=== PATIENT | female | born 1955 | race Caucasian/White ===

== ENCOUNTER 2023-08-04 23:48 | Inpatient (IN) | payer MEDICARE ==
[2023-08-05] MEDS: PANTOPRAZOLE 40 MG/10 ML VIAL IVP STA (00:29)
--- NOTE | 2023-08-05 00:43 | XR ---
EXAM: XR Chest, 1 View CLINICAL HISTORY: ITS.REASON XR Reason: abdominal pain TECHNIQUE: Frontal view of the chest. COMPARISON: No relevant prior studies available. FINDINGS: Lungs: Bibasilar atelectasis. Heterogeneous interstitial prominence in the right lung. Pleural space: Small right pleural effusion. Heart: Unremarkable. No cardiomegaly. Upper abdomen: Elevated right hemidiaphragm. IMPRESSION: 1. Elevated right hemidiaphragm. 2. Bibasilar atelectasis. 3. Small right pleural effusion. 4. Heterogeneous interstitial prominence in the right lung.
[2023-08-05 00:47] LABS: Anisocytosis Slight; Basophils # (A) 0.1 k/uL (0-0.2); Basophils % (A) 1 %; Eosinophils # (A) 0.6 k/uL (0-0.7); Eosinophils % (A) 4 %; HCT 21.3 % (34.0-46.0); Hypochromasia Marked; Lymphocytes # (A) 2.4 k/uL (1.0-4.8); Lymphocytes % (A) 19 %; MCH 17.2 pg (25.0-35.0); MCHC 27.7 g/dL (31.0-37.0); MCV 62.1 fL (80.0-100.0); Mean Platelet Volume 7.8; Microcytosis Marked; Monocytes % (A) 7 %; Neutrophils # (A) 8.7 k/uL (1.3-7.7); Neutrophils % (A) 67 %; Platelet Count 596 k/uL (150-450); Poikilocytosis Moderate; RBC 3.44 m/uL (3.80-5.40); RDW 19.5 % (11.5-15.5)
[2023-08-05 00:51] LABS: INR 1.2 (<1.2); Partial Thromboplastin Time 25.6 sec (22.0-30.0); Prothrombin Time 12.8 sec (10.0-12.5)
--- NOTE | 2023-08-05 00:54 | ED ---
General Adult HPI - General Chief complaint: Recheck/Abnormal Lab/Rx Stated complaint: Critical Labs Time Seen by Provider: 08/04/23 23:53 Source: patient, EMS, RN notes reviewed, old records reviewed Mode of arrival: EMS - History of Present Illness Initial comments: Patient is a 68-year-old female presents emergency department with no obvious complaints. Presents emergency department after being sent from her nursing facility for low hemoglobin on outpatient lab draw. Was recently sent to this facility. Apparently is on Eliquis. Patient denies any nausea, vomiting, he matochezia, melena, dark tarry stools. Denies any abdominal pain, chest pain, shortness of breath. Has no other acute complaints at this time. Has some lower extremity wounds that are slow healing. No other acute complaints. Is at baseline mental status of AandO x 2-3. Presents for further evaluation at this time. - Related Data Allergies Allergy/AdvReac Type Severity Reaction Status Date / Time No Known Allergies Allergy Verified 08/05/23 00:24 Review of Systems ROS Statement: Those systems with pertinent positive or pertinent negative responses have been documented in the HPI. Review of Systems: CONST: Denies fever EYES: Denies blurry vision ENT: Denies nasal congestion C/V: Denies Chest pain RESP: Denies shortness of breath GI: Denies abdominal pain : Denies dysuria SKIN: Denies rash. MSK: Denies joint pain. NEURO: Denies headache ROS Other: All systems not noted in ROS Statement are negative. Past Medical History Past Medical History: Unable to Obtain History of Any Multi-Drug Resistant Organisms: None Reported Past Surgical History: Back Surgery Past Psychological History: Unable to Obtain Smoking Status: Former smoker Past Alcohol Use History: None Reported Past Drug Use History: None Reported General Exam - General Exam Comments Initial Comments: General: Appears in no acute distress. HEAD: Normal with no signs of head trauma. EYES: PERRLA, EOMI, conjunctiva normal, no discharge. ENT: Hearing grossly intact, normal oropharynx. RESPIRATORY: Clear breath sounds bilaterally. No wheezes, rales, or rhonchi. C/V: Regular rate and rhythm. S1 and S2 auscultated, mild bilateral lower extremity pitting edema, peripheral pulses 2+ and intact throughout ABD: Abd is soft, nontender, nondistended EXT: Normal range of motion, no obvious deformity SKIN: No rashes or lesions observed on exposed skin. NEURO: Alert and oriented x 2-3 which is baseline. No obvious focal acute deficits. Course Vital Signs 08/05/23 08/05/23 08/05/23 00:13 02:05 02:42 Temperature 98.3 F 97.6 F Pulse Rate 79 81 79 Respiratory 18 18 24 Rate Blood Pressure 107/95 115/68 109/58 O2 Sat by Pulse 93 L 93 L 92 L Oximetry 08/05/23 08/05/23 08/05/23 02:52 03:12 05:11 Temperature 97.7 F 97.6 F 98.6 F Pulse Rate 80 85 74 Respiratory 18 18 13 Rate Blood Pressure 110/64 117/60 104/51 O2 Sat by Pulse 92 L 94 L 95 Oximetry 08/05/23 06:32 Temperature Pulse Rate 75 Respiratory 17 Rate Blood Pressure 110/71 O2 Sat by Pulse 94 L Oximetry Medical Decision Making - Medical Decision Making Was pt. sent in by a medical professional or institution (, PA, [employer], urgent care, hospital, or long-term...) When possible be specific @ -No Did you speak to anyone other than the patient for history (EMS, parent, family, police, friend...)? What history was obtained from this source @ -No Did you review nursing and triage notes (agree or disagree)? Why? @ -I reviewed and agree with nursing and triage notes Were old charts reviewed (outside hosp., previous admission, EMS record, old EKG, old radiological studies, urgent care reports/EKG's, long-term records)? Report findings @ -No old charts were reviewed Differential Diagnosis (chest pain, altered mental status, abdominal pain women, abdominal pain men, vaginal bleeding, weakness, fever, dyspnea, syncope, headache, dizziness, GI bleed, back pain, seizure, CVA, palpatations, mental health, musculoskeletal)? @ -Lab draw, anemia, GI bleed, dehydration, electrolyte abnormality. This list is not all inclusive. EKG interpreted by me (3pts min.). @ -As above X-rays interpreted by me (1pt min.). @ -Chest x-ray reveals no obvious acute cardiopulmonary process. CT interpreted by me (1pt min.). @ -None done U/S interpreted by me (1pt. min.). @ -None done What testing was considered but not performed or refused? (CT, X-rays, U/S, labs)? Why? @ -None What meds were considered but not given or refused? Why? @ -None Did you discuss the management of the patient with other professionals (professionals i.e. , PA, [employer], lab, RT, psych nurse, social science manager, apprentice embalmer, teacher, chief supply chain officer, comp field case manager)? Give summary @ -I spoke with the admitting team, city call SOPHIA Lopez of [facility] who accepted the admission Was smoking cessation discussed for >3mins.? @ -No Was critical care preformed (if so, how long)? @ -No Were there social determinants of health that impacted care today? How? (Homelessness, low income, unemployed, alcoholism, drug addiction, transportation, low edu. Level, literacy, decrease access to med. care, longterm, rehab)? @ -No Was there de-escalation of care discussed even if they declined (Discuss DNR or withdrawal of care, Hospice)? DNR status @ -No What co-morbidities impacted this encounter? (DM, HTN, Smoking, COPD, CAD, Cancer, CVA, ARF, Chemo, Hep., AIDS, mental health diagnosis, sleep apnea, morbid obesity)? @ -None Was patient admitted / discharged? Hospital course, mention meds given and route, prescriptions, significant lab abnormalities, going to OR and other pertinent info. @ -Patient presents for lab redraw over concern for anemia. We will repeat labs. She has no obvious complaints at this time. No evidence of GI bleeding on questioning or on exam. Hemodynamically stable. Vital signs within acceptable limits. Patient was in agreement with this plan. It does appear based on long-term paperwork that she is on Eliquis. EKG shows no signs of acute ischemia. Chest x-ray shows no obvious acute cardiopulmonary process. Patient does have a right-sided pleural effusion. Patient's laboratory studies remarkable for a microcytic anemia with a hemoglobin of 5.9. No prior labs for comparison. Rectal exam performed in the presence of a female staff member. No gross blood on exam. No hemorrhoids. Occult blood negative. At this time, patient has a microcytic anemia of unknown duration. Does not appear to be having an acute GI bleed at this time as patient's rectal exam is unremarkable and she has not been experiencing any hematemesis. Patient has no complaints at this time. Patient will be transfused 1 unit of pRBCs and we will admit the patient for monitoring. She was in agreement this plan. Vital signs remain within acceptable limits.Will continue to hold the patient's anticoagulation at this time. I have low suspicion for acute GI bleed as a source of her current anemia. Appears to be chronic in nature with the microcytic aspect. I spoke with [facility] city call SOPHIA Lopez who accepted the admission. Undiagnosed new problem with uncertain prognosis? @ -No Drug Therapy requiring intensive monitoring for toxicity (Heparin, Nitro, Insulin, Cardizem)? @ -No Were any procedures done? @ -No Diagnosis/symptom? @ -Microcytic anemia Acute, or Chronic, or Acute on Chronic? @ -Acute Uncomplicated (without systemic symptoms) or Complicated (systemic symptoms)? @ -complicated Side effects of treatment? @ -None Exacerbation, Progression, or Severe Exacerbation] @ -No Poses a threat to life or bodily function? @ -Possibly, yes - Lab Data Result diagrams: 08/05/23 00:02 08/05/23 00:02 Lab Results 08/05/23 08/05/23 08/05/23 Range/Units 00:02 00:02 00:02 WBC 13.0 H (3.8-10.6) k/uL RBC 3.44 L (3.80-5.40) m/uL Hgb 5.9 L* (11.4-16.0) gm/dL Hct 21.3 L (34.0-46.0) % MCV 62.1 L (80.0-100.0) fL MCH 17.2 L (25.0-35.0) pg MCHC 27.7 L (31.0-37.0) g/dL RDW 19.5 H (11.5-15.5) % Plt Count 596 H (150-450) k/uL MPV 7.8 Neutrophils % 67 % Lymphocytes % 19 % Monocytes % 7 % Eosinophils % 4 % Basophils % 1 % Neutrophils # 8.7 H (1.3-7.7) k/uL Lymphocytes # 2.4 (1.0-4.8) k/uL Monocytes # 1.0 (0-1.0) k/uL Eosinophils # 0.6 (0-0.7) k/uL Basophils # 0.1 (0-0.2) k/uL Hypochromasia Marked Poikilocytosis Moderate Anisocytosis Slight Microcytosis Marked PT 12.8 H (10.0-12.5) sec INR 1.2 H (<1.2) APTT 25.6 (22.0-30.0) sec Sodium 135 L (137-145) mmol/L Potassium 4.8 (3.5-5.1) mmol/L Chloride 108 H (98-107) mmol/L Carbon Dioxide 24 (22-30) mmol/L Anion Gap 3 mmol/L BUN 12 (7-17) mg/dL Creatinine 0.33 L (0.52-1.04) mg/dL Est GFR (CKD-EPI)AfAm >90 (>60 ml/min/1.73 sqM) Est GFR (CKD-EPI)NonAf >90 (>60 ml/min/1.73 sqM) Glucose 99 (74-99) mg/dL Plasma Lactic Acid Saurabh (0.7-2.0) mmol/L Calcium 8.1 L (8.4-10.2) mg/dL Total Bilirubin 0.7 (0.2-1.3) mg/dL AST 123 H (14-36) U/L ALT 41 H (4-34) U/L Alkaline Phosphatase 131 H (38-126) U/L Total Protein 6.9 (6.3-8.2) g/dL Albumin 2.8 L (3.5-5.0) g/dL Amylase 43 (30-110) U/L Lipase 83 (23-300) U/L Stool Occult Blood (Negative) Blood Type Blood Type Confirm Blood Type Recheck Bld Type Recheck Status Antibody Screen Crossmatch Spec Expiration Date 08/05/23 08/05/23 08/05/23 Range/Units 00:02 00:02 00:07 WBC (3.8-10.6) k/uL RBC (3.80-5.40) m/uL Hgb (11.4-16.0) gm/dL Hct (34.0-46.0) % MCV (80.0-100.0) fL MCH (25.0-35.0) pg MCHC (31.0-37.0) g/dL RDW (11.5-15.5) % Plt Count (150-450) k/uL MPV Neutrophils % % Lymphocytes % % Monocytes % % Eosinophils % % Basophils % % Neutrophils # (1.3-7.7) k/uL Lymphocytes # (1.0-4.8) k/uL Monocytes # (0-1.0) k/uL Eosinophils # (0-0.7) k/uL Basophils # (0-0.2) k/uL Hypochromasia Poikilocytosis Anisocytosis Microcytosis PT (10.0-12.5) sec INR (<1.2) APTT (22.0-30.0) sec Sodium (137-145) mmol/L Potassium (3.5-5.1) mmol/L Chloride (98-107) mmol/L Carbon Dioxide (22-30) mmol/L Anion Gap mmol/L BUN (7-17) mg/dL Creatinine (0.52-1.04) mg/dL Est GFR (CKD-EPI)AfAm (>60 ml/min/1.73 sqM) Est GFR (CKD-EPI)NonAf (>60 ml/min/1.73 sqM) Glucose (74-99) mg/dL Plasma Lactic Acid Saurabh 1.1 (0.7-2.0) mmol/L Calcium (8.4-10.2) mg/dL Total Bilirubin (0.2-1.3) mg/dL AST (14-36) U/L ALT (4-34) U/L Alkaline Phosphatase (38-126) U/L Total Protein (6.3-8.2) g/dL Albumin (3.5-5.0) g/dL Amylase (30-110) U/L Lipase (23-300) U/L Stool Occult Blood (Negative) Blood Type O Positive Blood Type Confirm O Positive Blood Type Recheck No Previous Record Bld Type Recheck Status CABO Indicated Antibody Screen NEGATIVE Crossmatch See Detail Spec Expiration Date 08/08/2023 - 230108/05/23 Range/Units 01:50 WBC (3.8-10.6) k/uL RBC (3.80-5.40) m/uL Hgb (11.4-16.0) gm/dL Hct (34.0-46.0) % MCV (80.0-100.0) fL MCH (25.0-35.0) pg MCHC (31.0-37.0) g/dL RDW (11.5-15.5) % Plt Count (150-450) k/uL MPV Neutrophils % % Lymphocytes % % Monocytes % % Eosinophils % % Basophils % % Neutrophils # (1.3-7.7) k/uL Lymphocytes # (1.0-4.8) k/uL Monocytes # (0-1.0) k/uL Eosinophils # (0-0.7) k/uL Basophils # (0-0.2) k/uL Hypochromasia Poikilocytosis Anisocytosis Microcytosis PT (10.0-12.5) sec INR (<1.2) APTT (22.0-30.0) sec Sodium (137-145) mmol/L Potassium (3.5-5.1) mmol/L Chloride (98-107) mmol/L Carbon Dioxide (22-30) mmol/L Anion Gap mmol/L BUN (7-17) mg/dL Creatinine (0.52-1.04) mg/dL Est GFR (CKD-EPI)AfAm (>60 ml/min/1.73 sqM) Est GFR (CKD-EPI)NonAf (>60 ml/min/1.73 sqM) Glucose (74-99) mg/dL Plasma Lactic Acid Saurabh (0.7-2.0) mmol/L Calcium (8.4-10.2) mg/dL Total Bilirubin (0.2-1.3) mg/dL AST (14-36) U/L ALT (4-34) U/L Alkaline Phosphatase (38-126) U/L Total Protein (6.3-8.2) g/dL Albumin (3.5-5.0) g/dL Amylase (30-110) U/L Lipase (23-300) U/L Stool Occult Blood Negative (Negative) Blood Type Blood Type Confirm Blood Type Recheck Bld Type Recheck Status Antibody Screen Crossmatch Spec Expiration Date - EKG Data -: EKG Interpreted by Me EKG Comments: 12-lead Electrocardiogram Interpretation Note EKG was reviewed and interpreted by myself. 12-lead ECG performed at 0034 is interpreted by me as revealing normal sinus rhythm at a rate of 80 beats per minute. [place] is normal. ND interval is 159 ms, QRS duration is 83 ms, QTc is 443 ms.. There were no ST or T wave abnormalities to suggest myocardial ischemia or injury. R wave progression across the precordium was satisfactory. By my interpretation this EKG is non-diagnostic for acute ischemia. Disposition Clinical Impression: Microcytic anemia Disposition: ADMITTED IP TO THIS HOSP Condition: Stable Time of Disposition: 02:10
[2023-08-05 00:57] LABS: HGB 5.9 gm/dL (11.4-16.0)
[2023-08-05 01:01] LABS: ALT 41 U/L (4-34); African American GFR (CKD) >90 (>60 ml/min/1.73 sqM); Amylase 43 U/L (30-110); Anion Gap 3 mmol/L; Blood Urea Nitrogen 12 mg/dL (7-17); Calcium 8.1 mg/dL (8.4-10.2); Carbon Dioxide 24 mmol/L (22-30); Chloride 108 mmol/L (98-107); Glucose 99 mg/dL (74-99); Lipase 83 U/L (23-300); Non-African American GFR(CKD) >90 (>60 ml/min/1.73 sqM); Sodium 135 mmol/L (137-145); Total Bilirubin 0.7 mg/dL (0.2-1.3)
[2023-08-05 01:13] LABS: AST 123 U/L (14-36); Albumin 2.8 g/dL (3.5-5.0); Alkaline Phosphatase 131 U/L (38-126); Potassium 4.8 mmol/L (3.5-5.1); Total Protein 6.9 g/dL (6.3-8.2)
[2023-08-05] MEDS ORDERED: ONDANSETRON 4 MG/2 ML VIAL IVP PRN (02:08)
[2023-08-05] MEDS ORDERED: NALOXONE 0.4 MG/ML 1 ML VIAL IV PRN (02:08)
[2023-08-05] MEDS ORDERED: ACETAMINOPHEN TAB 325 MG TAB PO PRN (02:08)
[2023-08-05] MEDS: oxyCODONE-APAP 5-325MG 1 EACH TAB PO PRN (03:29)
[2023-08-05 08:29] LABS: % Iron Saturation 3.41 (12.00-45.00)
[2023-08-05] MEDS ORDERED: PANTOPRAZOLE 40 MG/10 ML VIAL IV SCH (09:00)
[2023-08-05] MEDS: PANTOPRAZOLE 40 MG/10 ML VIAL IV SCH (09:10)
[2023-08-05] MEDS ORDERED: ACETAMINOPHEN TAB 500 MG TAB PO PRN (09:41)
[2023-08-05] MEDS: SODIUM FERRIC GLUCONAT-SUCROSE 125 MG in SODIUM CHLORIDE 0.9% 100 ML IVPB SCH (10:15)
[2023-08-05] MEDS: PEG 3350 (236 GM/BTL) + LYTES 4,000 ML BOTTLE PO ONE ×2 (12:37→16:28)
[2023-08-05] MEDS: PREGABALIN 75 MG CAP PO SCH (12:47)
--- NOTE | 2023-08-05 13:01 | P.HPIM ---
History of Present Illness H&P Date: 08/05/23 History of present illness; patient IS A 68-year-old lady with past medical history significant for coronary artery disease, PE, dementia who presented to the ER for abnormal labs. Patient is currently residing in a custodial facility and was found to have low hemoglobin levels. Patient denies any chest pain or shortness of breath. There is complain of lethargy and weakness. There was no complaint nausea, vomiting abdominal pain. There was no complaint of blood in the stools. Denies any hematemesis. Patient has been taking aspirin, Plavix and Eliquis in outpatient settings. Because of these abnormal labs, patient sent to the ER Initial lab work done in the ER showed WBC 13, hemoglobin 5.9, platelet count 596, sodium 135, potassium 4.8, BUN 12, creatinine 0.33, AST 123, ALT 41, alk phos 131 EKG done in the ER showed heart rate of80 , no ST segment elevation or depression seen, no T-wave inversions seen. Chest x-ray done in the ER elevated right hemidiaphragm, bilateral atelectasis, small right pleural effusion Patient admitted to internal medicine service REVIEW OF SYSTEMS: CONSTITUTIONAL: No fever, no malaise, no fatigue. HEENT: No recent visual problems or hearing problems. Denied any sore throat. CARDIOVASCULAR: No chest pain, orthopnea, PND, no palpitations, no syncope. PULMONARY: No shortness of breath, no cough, no hemoptysis. GASTROINTESTINAL: No diarrhea, no nausea, no vomiting, no abdominal pain. NEUROLOGICAL: No headaches, no weakness, no numbness. HEMATOLOGICAL: Denies any bleeding or petechiae. GENITOURINARY: Denies any burning micturition, frequency, or urgency. MUSCULOSKELETAL/RHEUMATOLOGICAL: Denies any joint pain, swelling, or any muscle pain. ENDOCRINE: Denies any polyuria or polydipsia. The rest of the 14-point review of systems is negative. PHYSICAL EXAMINATION: GENERAL: The patient is alert to self, not in any acute distress. Well developed, well nourished. HEENT: Pupils are round and equally reacting to light. EOMI. No scleral icterus. No conjunctival pallor. Normocephalic, atraumatic. No pharyngeal erythema. No thyromegaly. CARDIOVASCULAR: S1 and S2 present. No murmurs, rubs, or gallops. PULMONARY: Chest is clear to auscultation, no wheezing or crackles. ABDOMEN: Soft, nontender, nondistended, normoactive bowel sounds. No palpable organomegaly. MUSCULOSKELETAL: Bilateral lower extremity bandages EXTREMITIES: No cyanosis, clubbing, or pedal edema. NEUROLOGICAL: Gross neurological examination did not reveal any focal deficits. SKIN: No rashes. Assessment and plan Acute blood loss anemia Iron deficiency anemia Hypertension Hyperlipidemia Coronary artery disease History of PE Monitor vital signs Monitor CBC Monitor CMP Continue telemetry monitoring Ordered anemia workup Start Venofer Continue IV Protonix Hold aspirin, Plavix and Eliquis for now Resume home meds Hold blood pressure medications for now. Consult GI for evaluation Consult hematology for iron deficiency anemia Consult cardiology Labs and medication were reviewed.. Continue same treatment. Continue with symptomatic treatment. Resume home medication. Monitor labs and vitals. DVT and GI prophylaxis. Further recommendations as per clinical course of the patient Dictation was produced using [employer] dictation software. please excuse any grammatical, word or spelling errors. Past Medical History Past Medical History: Unable to Obtain History of Any Multi-Drug Resistant Organisms: None Reported Past Surgical History: Back Surgery Past Psychological History: Unable to Obtain Smoking Status: Former smoker Past Alcohol Use History: None Reported Past Drug Use History: None Reported Medications and Allergies Home Medications Medication Instructions Recorded Confirmed Type Acetaminophen [Tylenol Extra 500 mg PO Q6H PRN 08/05/23 08/05/23 History Strength] Alendronate Sodium [Fosamax] 70 mg PO CLEMENT@59908/05/23 08/05/23 History Apixaban [Eliquis] 5 mg PO BID 08/05/23 08/05/23 History Ascorbic Acid [Vitamin C] 500 mg PO DAILY@69908/05/23 08/05/23 History Aspirin 81 mg PO DAILY@59908/05/23 08/05/23 History Atorvastatin [Lipitor] 40 mg PO HS@199908/05/23 08/05/23 History Calcium Carbonate/Vitamin D3 1 tab PO DAILY@59908/05/23 08/05/23 History [Calcium 600-Vit D3 5 Mcg (200 Iu)] Clopidogrel [Plavix] 75 mg PO HS@199908/05/23 08/05/23 History Docusate Sodium [Dok] 200 mg PO DAILY@0600 08/05/23 08/05/23 History Ergocalciferol (Vitamin D2) 1,250 mcg PO WE@59908/05/23 08/05/23 History [Drisdol (50,000 Iu)] FLUoxetine HCL [PROzac] 20 mg PO DAILY@0608/05/23 08/05/23 History Famotidine [Pepcid] 20 mg PO DAILY@0608/05/23 08/05/23 History Fluticasone Propion/Salmeterol 1 puff INHALATION RT-BID@0700,1900 08/05/23 08/05/23 History [Advair 500-50 Diskus] Furosemide [Lasix] 20 mg PO DAILY@69908/05/23 08/05/23 History Lactulose 20 gm PO DAILY PRN 08/05/23 08/05/23 History Lidocaine/Menthol [Icy Hot 4%-1% 1 patch TOPICAL DAILY@69908/05/23 08/05/23 History Patch] Mag Hydrox/Aluminum Hyd/Simeth 10 ml PO Q4H PRN 08/05/23 08/05/23 History [Mylanta Maximum Strength Liq] Magnesium Hydroxide [Milk of 2,400 mg PO Q3D PRN 08/05/23 08/05/23 History Magnesia] Melatonin 3 mg PO HS 08/05/23 08/05/23 History Menthol [Biofreeze] 1 applic TOPICAL QID@07,13,19,22 08/05/23 08/05/23 History Metoprolol Succinate (ER) [Toprol 25 mg PO DAILY@69908/05/23 08/05/23 History Xl] Montelukast [Singulair] 10 mg PO HS@199908/05/23 08/05/23 History Multivitamins, Thera [Multivitamin 1 tab PO DAILY@0600 08/05/23 08/05/23 History (formulary)] Mupirocin 2% Oint [Bactroban 2% 1 applic TOPICAL TID PRN 08/05/23 08/05/23 History Oint] Pregabalin [Lyrica] 150 mg PO TID@0700,1300,1900 08/05/23 08/05/23 History Sennosides [Senokot] 17.2 mg PO HS@199908/05/23 08/05/23 History oxyCODONE HCL [oxyCODONE HCL (IR)] 5 mg PO Q6H PRN 08/05/23 08/05/23 History Allergies Allergy/AdvReac Type Severity Reaction Status Date / Time cortisone Allergy Unknown Verified 08/05/23 07:47 lisinopril Allergy Unknown Verified 08/05/23 07:47 methadone Allergy Unknown Verified 08/05/23 07:47 nortriptyline Allergy Unknown Verified 08/05/23 07:47 Physical Exam Vitals: Vital Signs Temp Pulse Resp BP Pulse Ox 08/05/23 09:04 98.0 F 71 16 112/54 94 L 08/05/23 06:32 75 17 110/71 94 L 08/05/23 05:11 98.6 F 74 13 104/51 95 08/05/23 03:12 97.6 F 85 18 117/60 94 L 08/05/23 02:52 97.7 F 80 18 110/64 92 L 08/05/23 02:42 97.6 F 79 24 109/58 92 L 08/05/23 02:05 81 18 115/68 93 L 08/05/23 00:13 98.3 F 79 18 107/95 93 L Intake and Output 08/04/23 08/05/23 08/05/23 22:59 06:59 14:59 Intake Total 310 Output Total 68 Balance 242 Intake: Blood Product 310 Rc As-1 Unit 310 [id number] Output: Post Void Residual 68 Other: Weight 68.039 kg Results CBC & Chem 7: 08/05/23 00:02 08/05/23 00:02 Labs: Abnormal Lab Results - Last 24 Hours (Table) 08/05/23 08/05/23 08/05/23 Range/Units 00:02 00:02 00:02 WBC 13.0 H (3.8-10.6) k/uL RBC 3.44 L (3.80-5.40) m/uL Hgb 5.9 L* (11.4-16.0) gm/dL Hct 21.3 L (34.0-46.0) % MCV 62.1 L (80.0-100.0) fL MCH 17.2 L (25.0-35.0) pg MCHC 27.7 L (31.0-37.0) g/dL RDW 19.5 H (11.5-15.5) % Plt Count 596 H (150-450) k/uL Neutrophils # 8.7 H (1.3-7.7) k/uL PT 12.8 H (10.0-12.5) sec INR 1.2 H (<1.2) Sodium 135 L (137-145) mmol/L Chloride 108 H (98-107) mmol/L Creatinine 0.33 L (0.52-1.04) mg/dL Calcium 8.1 L (8.4-10.2) mg/dL Iron (50-170) UG/DL % Saturation (12.00-45.00) AST 123 H (14-36) U/L ALT 41 H (4-34) U/L Alkaline Phosphatase 131 H (38-126) U/L Albumin 2.8 L (3.5-5.0) g/dL Crossmatch 08/05/23 08/05/23 Range/Units 00:02 00:02 WBC (3.8-10.6) k/uL RBC (3.80-5.40) m/uL Hgb (11.4-16.0) gm/dL Hct (34.0-46.0) % MCV (80.0-100.0) fL MCH (25.0-35.0) pg MCHC (31.0-37.0) g/dL RDW (11.5-15.5) % Plt Count (150-450) k/uL Neutrophils # (1.3-7.7) k/uL PT (10.0-12.5) sec INR (<1.2) Sodium (137-145) mmol/L Chloride (98-107) mmol/L Creatinine (0.52-1.04) mg/dL Calcium (8.4-10.2) mg/dL Iron 13 L (50-170) UG/DL % Saturation 3.41 L (12.00-45.00) AST (14-36) U/L ALT (4-34) U/L Alkaline Phosphatase (38-126) U/L Albumin (3.5-5.0) g/dL Crossmatch See Detail
[2023-08-05 13:28] LABS: Anisocytosis Moderate; Basophils # (A) 0.1 k/uL (0-0.2); Basophils % (A) 1 %; Eosinophils # (A) 0.2 k/uL (0-0.7); Eosinophils % (A) 2 %; HCT 25.5 % (34.0-46.0); HGB 7.3 gm/dL (11.4-16.0); Hypochromasia Marked; Lymphocytes # (A) 1.5 k/uL (1.0-4.8); Lymphocytes % (A) 15 %; MCH 19.2 pg (25.0-35.0); MCHC 28.6 g/dL (31.0-37.0); Mean Platelet Volume 9.7; Microcytosis Marked; Monocytes # (A) 0.6 k/uL (0-1.0); Monocytes % (A) 6 %; Neutrophils # (A) 7.3 k/uL (1.3-7.7); Neutrophils % (A) 74 %; Platelet Count 542 k/uL (150-450); Poikilocytosis Marked; RBC 3.81 m/uL (3.80-5.40); RDW 21.9 % (11.5-15.5); WBC 9.9 k/uL (3.8-10.6)
[2023-08-05 14:38] LABS: Reticulocyte % 3.3 % (0.5-2.0)
--- NOTE | 2023-08-05 15:55 | P.CONS ---
History of Present Illness - Reason for Consult Consult date: 08/05/23 Anemia Requesting physician: Brunilda Barakat - Chief Complaint anemia - History of Present Illness This is a 68-year-old female who was brought into the emergency department yesterday for abnormal labs. Patient is currently residing at [facility] in [place] apparently had blood work done and was found to be anemic. She was sent to the emergency department for further evaluation. She was noted to have hemoglobin of 5.9 on admission, with microcytic anemia. Iron studies were completed showing iron deficiency anemia. Patient is quite confused she is only alert and oriented x 1. Most of the history is obtained from the chart and patient's daughter Maggie Finley was also called. Maggie states that the patient had been living in [place] she had had back surgery following the back surgery she had overdosed and had fallen and she was found facedown and par alyzed. She was then transferred to [place] to [facility] in [place] for rehabilitation as family was here in [place]. She is now at [facility] for about the last 6 months duration. She was unaware of her medications and that she was on anticoagulation and what for. To maggie's knowledge patient has never had a GI bleed and has not required any blood transfusion. She states that she does have a bone disease and has had to have surgeries in the past. Patient is currently on Eliquis 5 mg twice daily, Plavix 75 mg daily and aspirin 81 mg daily. Again at this time unclear as to patient's past medical history and reasoning for anticoagulation however it is currently on hold. Patient denies any blood in her stool, she denies any abdominal pain, nausea vomiting or hematemesis. Review of Systems REVIEW OF SYSTEMS: CARDIOPULMONARY: No chest pain or shortness of breath. Gastrointestinal: No abdominal pain. No nausea or vomiting. No hematemesis, coffee-ground emesis. No rectal bleeding, or melena. GENITOURINARY: No dysuria or hematuria. MUSCULOSKELETAL: Reports normal range of motion., Joint pain. SKIN: No rashes. No jaundice. ENDOCRINE: No chills, fevers. No excessive weight gain or loss. No polydipsia or polyuria. PSYCHIATRIC: Unremarkable. NEUROLOGY: No change in mental status. Denies dizziness, headache. ENT: Vision unremarkable. CONSTITUTIONAL: No recent weight loss. No fever, chills, night sweats. Past Medical History Past Medical History: Unable to Obtain History of Any Multi-Drug Resistant Organisms: None Reported Past Surgical History: Back Surgery Past Psychological History: Unable to Obtain Smoking Status: Former smoker Past Alcohol Use History: None Reported Past Drug Use History: None Reported Medications and Allergies Home Medications Medication Instructions Recorded Confirmed Type Acetaminophen [Tylenol Extra 500 mg PO Q6H PRN 08/05/23 08/05/23 History Strength] Alendronate Sodium [Fosamax] 70 mg PO CLEMENT@59908/05/23 08/05/23 History Apixaban [Eliquis] 5 mg PO BID 08/05/23 08/05/23 History Ascorbic Acid [Vitamin C] 500 mg PO DAILY@69908/05/23 08/05/23 History Aspirin 81 mg PO DAILY@59908/05/23 08/05/23 History Atorvastatin [Lipitor] 40 mg PO HS@199908/05/23 08/05/23 History Calcium Carbonate/Vitamin D3 1 tab PO DAILY@59908/05/23 08/05/23 History [Calcium 600-Vit D3 5 Mcg (200 Iu)] Clopidogrel [Plavix] 75 mg PO HS@199908/05/23 08/05/23 History Docusate Sodium [Dok] 200 mg PO DAILY@59908/05/23 08/05/23 History Ergocalciferol (Vitamin D2) 1,250 mcg PO WE@59908/05/23 08/05/23 History [Drisdol (50,000 Iu)] FLUoxetine HCL [PROzac] 20 mg PO DAILY@59908/05/23 08/05/23 History Famotidine [Pepcid] 20 mg PO DAILY@59908/05/23 08/05/23 History Fluticasone Propion/Salmeterol 1 puff INHALATION RT-BID@0700,1900 08/05/23 08/05/23 History [Advair 500-50 Diskus] Furosemide [Lasix] 20 mg PO DAILY@69908/05/23 08/05/23 History Lactulose 20 gm PO DAILY PRN 08/05/23 08/05/23 History Lidocaine/Menthol [Icy Hot 4%-1% 1 patch TOPICAL DAILY@69908/05/23 08/05/23 History Patch] Mag Hydrox/Aluminum Hyd/Simeth 10 ml PO Q4H PRN 08/05/23 08/05/23 History [Mylanta Maximum Strength Liq] Magnesium Hydroxide [Milk of 2,400 mg PO Q3D PRN 08/05/23 08/05/23 History Magnesia] Melatonin 3 mg PO HS 08/05/23 08/05/23 History Menthol [Biofreeze] 1 applic TOPICAL QID@07,13,,08/05/23 08/05/23 History Metoprolol Succinate (ER) [Toprol 25 mg PO DAILY@0700 08/05/23 08/05/23 History Xl] Montelukast [Singulair] 10 mg PO HS@199908/05/23 08/05/23 History Multivitamins, Thera [Multivitamin 1 tab PO DAILY@0600 08/05/23 08/05/23 History (formulary)] Mupirocin 2% Oint [Bactroban 2% 1 applic TOPICAL TID PRN 08/05/23 08/05/23 History Oint] Pregabalin [Lyrica] 150 mg PO TID@0700,1300,1900 08/05/23 08/05/23 History Sennosides [Senokot] 17.2 mg PO HS@199908/05/23 08/05/23 History oxyCODONE HCL [oxyCODONE HCL (IR)] 5 mg PO Q6H PRN 08/05/23 08/05/23 History Allergies Allergy/AdvReac Type Severity Reaction Status Date / Time cortisone Allergy Unknown Verified 08/05/23 07:47 lisinopril Allergy Unknown Verified 08/05/23 07:47 methadone Allergy Unknown Verified 08/05/23 07:47 nortriptyline Allergy Unknown Verified 08/05/23 07:47 Physical Exam Vitals: Vital Signs Temp Pulse Resp BP Pulse Ox 08/05/23 09:04 98.0 F 71 16 112/54 94 L 08/05/23 06:32 75 17 110/71 94 L 08/05/23 05:11 98.6 F 74 13 104/51 95 08/05/23 03:12 97.6 F 85 18 117/60 94 L 08/05/23 02:52 97.7 F 80 18 110/64 92 L 02/15/24 02:42 97.6 F 79 24 109/58 92 L 08/05/23 02:05 81 18 115/68 93 L 08/05/23 00:13 98.3 F 79 18 107/95 93 L Intake and Output 08/04/23 08/05/23 08/05/23 22:59 06:59 14:59 Intake Total 310 Output Total 68 Balance 242 Intake: Blood Product 310 Rc As-1 Unit 310 [id number] Output: Post Void Residual 68 Other: Weight 68.039 kg General appearance: The patient is alert, oriented x 1, appears in no acute d istress. HET: Head is normocephalic and atraumatic. Conjunctiva pink. Sclera anicteric. Neck: Supple without lymphadenopathy. Trachea midline. Heart: Regular. Lungs: Equal expansion, normal respiratory effort. Abdomen: Soft, nontender, nondistended. Skin: No rashes. No jaundice. Extremities: Bilateral feet with dressings in place and body boots. She has multiple sores/abrasions to upper and lower extremities some which are scabbed with old blood. Neurological: No focal deficits. Alert and oriented x1. Results CBC & Chem 7: 08/05/23 13:09 08/05/23 00:02 Labs: Abnormal Lab Results - Last 24 Hours (Table) 08/05/23 08/05/23 08/05/23 Range/Units 00:02 00:02 00:02 WBC 13.0 H (3.8-10.6) k/uL RBC 3.44 L (3.80-5.40) m/uL Hgb 5.9 L* (11.4-16.0) gm/dL Hct 21.3 L (34.0-46.0) % MCV 62.1 L (80.0-100.0) fL MCH 17.2 L (25.0-35.0) pg MCHC 27.7 L (31.0-37.0) g/dL RDW 19.5 H (11.5-15.5) % Plt Count 596 H (150-450) k/uL Neutrophils # 8.7 H (1.3-7.7) k/uL PT 12.8 H (10.0-12.5) sec INR 1.2 H (<1.2) Sodium 135 L (137-145) mmol/L Chloride 108 H (98-107) mmol/L Creatinine 0.33 L (0.52-1.04) mg/dL Calcium 8.1 L (8.4-10.2) mg/dL Iron (50-170) UG/DL % Saturation (12.00-45.00) AST 123 H (14-36) U/L ALT 41 H (4-34) U/L Alkaline Phosphatase 131 H (38-126) U/L Albumin 2.8 L (3.5-5.0) g/dL Crossmatch 08/05/23 08/05/23 Range/Units 00:02 00:02 WBC (3.8-10.6) k/uL RBC (3.80-5.40) m/uL Hgb (11.4-16.0) gm/dL Hct (34.0-46.0) % MCV (80.0-100.0) fL MCH (25.0-35.0) pg MCHC (31.0-37.0) g/dL RDW (11.5-15.5) % Plt Count (150-450) k/uL Neutrophils # (1.3-7.7) k/uL PT (10.0-12.5) sec INR (<1.2) Sodium (137-145) mmol/L Chloride (98-107) mmol/L Creatinine (0.52-1.04) mg/dL Calcium (8.4-10.2) mg/dL Iron 13 L (50-170) UG/DL % Saturation 3.41 L (12.00-45.00) AST (14-36) U/L ALT (4-34) U/L Alkaline Phosphatase (38-126) U/L Albumin (3.5-5.0) g/dL Crossmatch See Detail Assessment and Plan (1) Microcytic anemia Narrative/Plan: 68-year-old female with unknown past medical history who is currently confused presented to the emergency department sent in by her rehab facility for concerns for anemia. She was found to have microcytic anemia on presentation with a h emoglobin at 5.9. Iron studies also consistent with an iron deficiency anemia. Patient denies any blood in her stool, black stool, nausea vomiting or hematemesis. She is on Eliquis 5 mg twice daily, Plavix 75 mg daily and aspirin 81 mg daily for unknown reason as medical history is not known at this time. Patient is unsure if she has had previous EGD or colonoscopy. She states that she does not have a history of ulcers. Unclear etiology of anemia, certainly need to consider GI source. Will proceed with EGD and colonoscopy if patient is cooperative. Will obtain consent from family. Current Visit: Yes Status: Acute Code(s): D50.9 - IRON DEFICIENCY ANEMIA, UNSPECIFIED SNOMED Code(s): 632763837 Plan: 1. Continue symptomatic and supportive care 2. Agree with blood transfusion 3. Daily CBC, transfuse for hemoglobin less than 7 4. Patient may have clear liquid diet, n.p.o. after midnight 5. Start bowel prep this afternoon around 1600 6. Please obtain consent from patient's family for EGD and colonoscopy which will be scheduled for tomorrow Thank you for this consultation, we will continue to follow. Dr. Arik Caballero I agree with the dictator's note, documented as a scribe by Samantha Lawson.
--- NOTE | 2023-08-05 17:21 | P.CONS ---
History of Present Illness - Reason for Consult Consult date: 08/05/23 anemia Requesting physician: Brunilda Barakat - Chief Complaint abn lab - History of Present Illness Ms. Leon is a 68 yo female who was brought to ER, she states she asked to come in because she was feeling weak and very tired, not sure how long she has felt this way. She was sent in from [facility] in [place] where she has been for about the last 6 months. From chart review she is there because of an overdose following back surgery with a fall and resulting paralyzation. Spoke with [facility] nursing staff, patient is bedridden, anticipate long-term residency. Confirmed Eliquis 5 mg twice daily, aspirin 81 mg daily and Plavix 75 mg daily. It appears this is for atrial fibrillation. No other information as to why she is on aspirin and Plavix. Staff at [facility] denied any gross bleeding that they noted, they report patient does take iron so her stools are dark color. This is something that is new, patient has not been anemic before. Patient denies any bleeding. She does have chronic wounds on the bilateral lower extremities that she does scratch at and they will bleed. No recent fevers, chills, nosebleeds, gum bleeding, nausea or vomiting, pink or red urine. Hgb 5.9 on admission, RBC indices showing microcytic, hypochromic anemia, platelets are also noted to be elevated, 596,000. Iron studies show low iron saturation, no ferritin has been performed. Anticoagulation and anti-platelet therapies have been placed on hold. has ordered parenteral iron. Review of Systems ROS unobtainable: due to mental status Past Medical History Past Medical History: Unable to Obtain History of Any Multi-Drug Resistant Organisms: None Reported Past Surgical History: Back Surgery Past Psychological History: Unable to Obtain Smoking Status: Former smoker Past Alcohol Use History: None Reported Past Drug Use History: None Reported Medications and Allergies Home Medications Medication Instructions Recorded Confirmed Type Acetaminophen [Tylenol Extra 500 mg PO Q6H PRN 08/05/23 08/05/23 History Strength] Alendronate Sodium [Fosamax] 70 mg PO CLEMENT@0600 08/05/23 08/05/23 History Apixaban [Eliquis] 5 mg PO BID 08/05/23 08/05/23 History Ascorbic Acid [Vitamin C] 500 mg PO DAILY@0700 15/24 02/15/24 History Aspirin 81 mg PO DAILY@59908/05/23 08/05/23 History Atorvastatin [Lipitor] 40 mg PO HS@199908/05/23 08/05/23 History Calcium Carbonate/Vitamin D3 1 tab PO DAILY@59908/05/23 08/05/23 History [Calcium 600-Vit D3 5 Mcg (200 Iu)] Clopidogrel [Plavix] 75 mg PO HS@199908/05/23 08/05/23 History Docusate Sodium [Dok] 200 mg PO DAILY@59908/05/23 08/05/23 History Ergocalciferol (Vitamin D2) 1,250 mcg PO WE@59908/05/23 08/05/23 History [Drisdol (50,000 Iu)] FLUoxetine HCL [PROzac] 20 mg PO DAILY@59908/05/23 08/05/23 History Famotidine [Pepcid] 20 mg PO DAILY@59908/05/23 08/05/23 History Fluticasone Propion/Salmeterol 1 puff INHALATION RT-BID@0700,1900 08/05/23 08/05/23 History [Advair 500-50 Diskus] Furosemide [Lasix] 20 mg PO DAILY@69908/05/23 08/05/23 History Lactulose 20 gm PO DAILY PRN 08/05/23 08/05/23 History Lidocaine/Menthol [Icy Hot 4%-1% 1 patch TOPICAL DAILY@0708/05/23 08/05/23 History Patch] Mag Hydrox/Aluminum Hyd/Simeth 10 ml PO Q4H PRN 08/05/23 08/05/23 History [Mylanta Maximum Strength Liq] Magnesium Hydroxide [Milk of 2,400 mg PO Q3D PRN 08/05/23 08/05/23 History Magnesia] Melatonin 3 mg PO HS 08/05/23 08/05/23 History Menthol [Biofreeze] 1 applic TOPICAL QID@07,,,08/05/23 08/05/23 History Metoprolol Succinate (ER) [Toprol 25 mg PO DAILY@0708/05/23 08/05/23 History Xl] Montelukast [Singulair] 10 mg PO HS@199908/05/23 08/05/23 History Multivitamins, Thera [Multivitamin 1 tab PO DAILY@0600 08/05/23 08/05/23 History (formulary)] Mupirocin 2% Oint [Bactroban 2% 1 applic TOPICAL TID PRN 08/05/23 08/05/23 History Oint] Pregabalin [Lyrica] 150 mg PO TID@0700,1300,1900 08/05/23 08/05/23 History Sennosides [Senokot] 17.2 mg PO HS@199908/05/23 08/05/23 History oxyCODONE HCL [oxyCODONE HCL (IR)] 5 mg PO Q6H PRN 08/05/23 08/05/23 History Allergies Allergy/AdvReac Type Severity Reaction Status Date / Time cortisone Allergy Unknown Verified 08/05/23 07:47 lisinopril Allergy Unknown Verified 08/05/23 07:47 methadone Allergy Unknown Verified 08/05/23 07:47 nortriptyline Allergy Unknown Verified 08/05/23 07:47 Physical Exam Vitals: Vital Signs Temp Pulse Resp BP Pulse Ox 08/05/23 11:04 79 17 117/66 95 08/05/23 10:14 79 17 124/62 94 L 08/05/23 09:04 98.0 F 71 16 112/54 94 L 08/05/23 06:32 75 17 110/71 94 L 08/05/23 05:11 98.6 F 74 13 104/51 95 08/05/23 03:12 97.6 F 85 18 117/60 94 L 08/05/23 02:52 97.7 F 80 18 110/64 92 L 08/05/23 02:42 97.6 F 79 24 109/58 92 L 08/05/23 02:05 81 18 115/68 93 L 08/05/23 00:13 98.3 F 79 18 107/95 93 L Intake and Output 08/04/23 08/05/23 08/05/23 22:59 06:59 14:59 Intake Total 310 Output Total 68 Balance 242 Intake: Blood Product 310 Rc As-1 Unit 310 [id number] Output: Post Void Residual 68 Other: Weight 68.039 kg - Constitutional General appearance: cooperative, no acute distress, obese - EENT superficial ulcers on the tongue Eyes: anicteric sclerae, EOMI ENT: hearing grossly normal - Respiratory Respiratory: bilateral: CTA, diminished - Cardiovascular Rhythm: regular Heart sounds: normal: S1, S2 Abnormal Heart Sounds: no systolic murmur, no diastolic murmur, no rub, no S3 Gallop, no S4 Gallop, no click, no other leg Peripheral Edema: bilateral: 1+ - Gastrointestinal General gastrointestinal: soft, tenderness - Integumentary Integumentary: normal - Neurologic Neurologic: CNII-XII intact (grossly) - Musculoskeletal Musculoskeletal: generalized weakness - Psychiatric A&Ox2 Psychiatric: appropriate affect Results CBC & Chem 7: 08/05/23 13:09 08/05/23 00:02 Labs: Abnormal Lab Results - Last 24 Hours (Table) 08/05/23 08/05/23 08/05/23 Range/Units 00:02 00:02 00:02 WBC 13.0 H (3.8-10.6) k/uL RBC 3.44 L (3.80-5.40) m/uL Hgb 5.9 L* (11.4-16.0) gm/dL Hct 21.3 L (34.0-46.0) % MCV 62.1 L (80.0-100.0) fL MCH 17.2 L (25.0-35.0) pg MCHC 27.7 L (31.0-37.0) g/dL RDW 19.5 H (11.5-15.5) % Plt Count 596 H (150-450) k/uL Neutrophils # 8.7 H (1.3-7.7) k/uL PT 12.8 H (10.0-12.5) sec INR 1.2 H (<1.2) Sodium 135 L (137-145) mmol/L Chloride 108 H (98-107) mmol/L Creatinine 0.33 L (0.52-1.04) mg/dL Calcium 8.1 L (8.4-10.2) mg/dL Iron (50-170) UG/DL % Saturation (12.00-45.00) AST 123 H (14-36) U/L ALT 41 H (4-34) U/L Alkaline Phosphatase 131 H (38-126) U/L Albumin 2.8 L (3.5-5.0) g/dL Crossmatch 08/05/23 08/05/23 Range/Units 00:02 00:02 WBC (3.8-10.6) k/uL RBC (3.80-5.40) m/uL Hgb (11.4-16.0) gm/dL Hct (34.0-46.0) % MCV (80.0-100.0) fL MCH (25.0-35.0) pg MCHC (31.0-37.0) g/dL RDW (11.5-15.5) % Plt Count (150-450) k/uL Neutrophils # (1.3-7.7) k/uL PT (10.0-12.5) sec INR (<1.2) Sodium (137-145) mmol/L Chloride (98-107) mmol/L Creatinine (0.52-1.04) mg/dL Calcium (8.4-10.2) mg/dL Iron 13 L (50-170) UG/DL % Saturation 3.41 L (12.00-45.00) AST (14-36) U/L ALT (4-34) U/L Alkaline Phosphatase (38-126) U/L Albumin (3.5-5.0) g/dL Crossmatch See Detail Assessment and Plan (1) Microcytic hypochromic anemia Current Visit: Yes Status: Acute Priority: High Code(s): D50.9 - IRON DEFICIENCY ANEMIA, UNSPECIFIED SNOMED Code(s): 66291090 (2) Thrombocythemia Current Visit: Yes Status: Acute Code(s): D75.839 - THROMBOCYTOSIS, UNSPECIFIED SNOMED Code(s): 3949038 Plan: Microcytic hypochromic anemia -Hemoglobin 5 9 on admission. Patient is status post 1 unit of PRBCs. A reasonable increase in her hemoglobin to 7.3. -No other labs in this medical record to compare to, no reports of a transfusion before. Anemia is of new onset -Patient is on Eliquis for atrial fibrillation. No documentation as to why the patient is on aspirin and Plavix or how long she has been on. The staff at [facility] did not have this info either. Consider consultation with Cardiology regarding aspirin and Plavix and if patient can come off one of the antiplatelet therapies. -Iron saturation low. Pending ferritin, B12, folate and reticulocyte count. -Parenteral iron has already been ordered by IM -Agree with GI evaluation for iron deficient anemia. If a source of bleeding is identified and treated patient can be resumed on her anticoagulation and antiplatelet therapies as prescribed with close monitoring. If no source of bleeding is found then quite possibly cause of iron loss is from sm bowel AVMs. In which case reasonable to see if either of the antiplatelet meds can be stopped from Cardiology standpoint. Recommendation will be for very close hemoglobin and iron monitoring with aggressive iron supplementation as needed.
[2023-08-05 19:12] LABS: Ferritin 11.4 ng/mL (10.0-291.0)
[2023-08-05] MEDS: SYMBICORT 160-4.5 MCG INHALER INHALATION SCH (19:48)
[2023-08-05] MEDS: MONTELUKAST 10 MG TAB PO SCH (20:09)
[2023-08-05] MEDS: ATORVASTATIN 40 MG TAB PO SCH (20:10)
[2023-08-05] MEDS: SENNOSIDES 8.6 MG TAB PO SCH (20:10)
[2023-08-05] MEDS ORDERED: LIDOCAINE 1% (10MG/ML) FOR IV START INTRADERMA PRN (22:14)
[2023-08-06] MEDS: LACTATED RINGERS 1,000 ML IV SCH (01:19)
[2023-08-06] MEDS: ASCORBIC ACID 500 MG TAB PO SCH (05:44)
[2023-08-06] MEDS: FLUoxetine HCL 20 MG CAP PO SCH (05:44)
[2023-08-06] MEDS: METOPROLOL SUCCINATE (ER) 25 MG TAB.ER.24H PO SCH (05:44)
--- NOTE | 2023-08-06 10:50 | P.PN ---
Subjective Progress Note Date: 08/06/23 patient IS A 68-year-old lady with past medical history significant for coronary artery disease, PE, dementia who presented to the ER for abnormal labs. Patient is currently residing in a [place] [facility] facility and was found to have low hemoglobin levels. Patient denies any chest pain or shortness of breath. There is complain of lethargy and weakness. There was no complaint nausea, vomiting abdominal pain. There was no complaint of blood in the stools. Denies any hematemesis. Patient has been taking aspirin, Plavix and Eliquis in outpatient settings. Because of these abnormal labs, patient sent to the ER Initial lab work done in the ER showed WBC 13, hemoglobin 5.9, platelet count 596, sodium 135, potassium 4.8, BUN 12, creatinine 0.33, AST 123, ALT 41, alk phos 131 EKG done in the ER showed heart rate of80 , no ST segment elevation or depression seen, no T-wave inversions seen. Chest x-ray done in the ER elevated right hemidiaphragm, bilateral atelectasis, small right pleural effusion Patient admitted to internal medicine service 08/06. Patient seen and examined. Currently n.p.o., going for EGD and colonoscopy today. Complaining of back pain REVIEW OF SYSTEMS: CONSTITUTIONAL: No fever, no malaise,. CARDIOVASCULAR: No chest pain, no palpitations, no syncope. PULMONARY: No shortness of breath, no cough, GASTROINTESTINAL: No diarrhea, no nausea, no vomiting, no abdominal pain. NEUROLOGICAL: No headaches, no weakness, PHYSICAL EXAMINATION: GENERAL: The patient is alert to self, not in any acute distress. Well developed, well nourished. HEENT: Pupils are round and equally reacting to light. EOMI. No scleral icterus. No conjunctival pallor. Normocephalic, atraumatic. No pharyngeal erythema. No thyromegaly. CARDIOVASCULAR: S1 and S2 present. No murmurs, rubs, or gallops. PULMONARY: Chest is clear to auscultation, no wheezing or crackles. ABDOMEN: Soft, nontender, nondistended, normoactive bowel sounds. No palpable organomegaly. MUSCULOSKELETAL: No joint swelling or deformity. EXTREMITIES: No cyanosis, clubbing, or pedal edema. NEUROLOGICAL: Gross neurological examination did not reveal any focal deficits. SKIN: No rashes. Assessment and plan Acute blood loss anemia Iron deficiency anemia Hypertension Hyperlipidemia Coronary artery disease History of PE according to the chart Dementia Monitor vital signs Monitor CBC Monitor CMP Continue telemetry monitoring Continue Venofer Continue IV Protonix Hold aspirin, Plavix and Eliquis for now GI evaluated the patient, planning EGD and colonoscopy Hematology oncology evaluated patient recommended if a source of bleeding is identified and treated patient can be resumed on her anticoagulation and antiplatelet therapies as prescribed with close monitoring. If no source of bleeding is found then quite possibly cause of iron loss is from sm bowel AVMs. In which case reasonable to see if either of the antiplatelet meds can be stopped from Cardiology standpoint. Cardiology following Labs and medication were reviewed.. Continue same treatment. Continue with symptomatic treatment. Resume home medication. Monitor labs and vitals. DVT and GI prophylaxis. Further recommendations as per clinical course of the patient Dictation was produced using [employer] dictation software. please excuse any grammatical, word or spelling errors. Objective - Vital Signs Vital signs: Vital Signs Temp 98.4 F 08/06/23 09:20 Pulse 85 08/06/23 09:20 Resp 16 08/06/23 09:20 BP 111/54 08/06/23 09:20 Pulse Ox 98 08/06/23 09:20 FiO2 Intake & Output 08/05/23 08/06/23 08/06/23 18:59 06:59 18:59 Intake Total 10 Balance 10 Intake: IV 10 Invasive Line 1 10 - Labs CBC & Chem 7: 08/05/23 13:09 08/05/23 00:02 Labs: Abnormal Lab Results - Last 24 Hours (Table) 08/05/23 08/05/23 Range/Units 13:09 13:09 Hgb 7.3 L (11.4-16.0) gm/dL Hct 25.5 L (34.0-46.0) % MCV 67.0 L (80.0-100.0) fL MCH 19.2 L (25.0-35.0) pg MCHC 28.6 L (31.0-37.0) g/dL RDW 21.9 H (11.5-15.5) % Plt Count 542 H (150-450) k/uL Retic Count 3.3 H (0.5-2.0) %
[2023-08-06 11:54] LABS: ALT 40 U/L (4-34); AST 88 U/L (14-36); African American GFR (CKD) >90 (>60 ml/min/1.73 sqM); Albumin 2.6 g/dL (3.5-5.0); Alkaline Phosphatase 103 U/L (38-126); Anion Gap 4 mmol/L; Blood Urea Nitrogen 7 mg/dL (7-17); Carbon Dioxide 24 mmol/L (22-30); Chloride 112 mmol/L (98-107); Glucose 98 mg/dL (74-99); Non-African American GFR(CKD) >90 (>60 ml/min/1.73 sqM); Potassium 3.9 mmol/L (3.5-5.1); Sodium 140 mmol/L (137-145); Total Bilirubin 0.6 mg/dL (0.2-1.3); Total Protein 6.4 g/dL (6.3-8.2)
[2023-08-06 12:00] LABS: Anisocytosis Moderate; Basophils % (A) 0 %; Eosinophils # (A) 0.3 k/uL (0-0.7); Eosinophils % (A) 3 %; HCT 25.6 % (34.0-46.0); HGB 7.4 gm/dL (11.4-16.0); Hypochromasia Marked; Lymphocytes # (A) 1.5 k/uL (1.0-4.8); Lymphocytes % (A) 14 %; MCH 19.4 pg (25.0-35.0); MCHC 28.8 g/dL (31.0-37.0); MCV 67.5 fL (80.0-100.0); Mean Platelet Volume 8.6; Microcytosis Marked; Monocytes # (A) 0.7 k/uL (0-1.0); Monocytes % (A) 7 %; Neutrophils # (A) 7.9 k/uL (1.3-7.7); Neutrophils % (A) 74 %; Platelet Count 570 k/uL (150-450); Poikilocytosis Marked; RDW 22.9 % (11.5-15.5); WBC 10.6 k/uL (3.8-10.6)
--- NOTE | 2023-08-06 12:30 | P.PN ---
Subjective Progress Note Date: 08/06/23 Principal diagnosis: Anemia This is a 68-year-old female who was brought into the emergency department yesterday for abnormal labs. Patient is currently residing at [facility] in [place] apparently had blood work done and was found to be anemic. She was sent to the emergency department for further evaluation. She was noted to have hemoglobin of 5.9 on admission, with microcytic anemia. Iron studies were completed showing iron deficiency anemia. Patient is quite confused she is only alert and oriented x 1. Most of the history is obtained from the chart and patient's daughter Maggie Finley was also called. 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 She was then transferred to [place] to [facility] in [facility] for rehabilitation as family was here in [place]. She is now at [facility] for about the last 6 months duration. She was unaware of her medications and that she was on anticoagulation and what for. To maggie's knowledge patient has never had a GI bleed and has not required any blood transfusion. She states that she does have a bone disease and has had to have surgeries in the past. Patient is currently on Eliquis 5 mg twice daily, Plavix 75 mg daily and aspirin 81 mg daily. Again at this time unclear as to patient's past medical history and reasoning for anticoagulation however it is currently on hold. Patient denies any blood in her stool, she denies any abdominal pain, nausea vomiting or hematemesis. 08/06/2023 Patient seen and examined as a follow-up. She remains in the ER waiting for bed. She was refusing to drink her bowel prep yesterday afternoon and throughou t the night. EGD and colonoscopy that was scheduled for today will be canceled. Otherwise patient still remains pleasantly confused. Denies any abdominal pain, nausea or vomiting. Her hemoglobin had come up from 5.9-7.4 today after 1 unit of blood. Hematology following as well and patient receiving parenteral iron. Objective - Vital Signs Vital signs: Vital Signs Temp 98 F 08/06/23 04:00 Pulse 71 08/06/23 04:00 Resp 14 08/06/23 04:00 BP 116/68 08/06/23 04:00 Pulse Ox 98 08/06/23 04:00 FiO2 - Exam General appearance: The patient is alert, oriented to self, appears in no acute distress. HET: Head is normocephalic and atraumatic. Conjunctiva pink. Sclera anicteric. Neck: Supple without lymphadenopathy. Abdomen: Soft, nontender, nondistended with bowel sounds. No guarding or rigidity. Extremities: Normal skin color and turgor. No pedal edema Skin: No rashes, no jaundice Neurological: No focal deficits. Alert and oriented to self. - Labs CBC & Chem 7: 08/06/23 11:04 08/06/23 11:04 Labs: Abnormal Lab Results - Last 24 Hours (Table) 08/05/23 08/05/23 08/05/23 Range/Units 00:02 13:09 13:09 Hgb 7.3 L (11.4-16.0) gm/dL Hct 25.5 L (34.0-46.0) % MCV 67.0 L (80.0-100.0) fL MCH 19.2 L (25.0-35.0) pg MCHC 28.6 L (31.0-37.0) g/dL RDW 21.9 H (11.5-15.5) % Plt Count 542 H (150-450) k/uL Retic Count 3.3 H (0.5-2.0) % Iron 13 L (50-170) UG/DL % Saturation 3.41 L (12.00-45.00) Assessment and Plan (1) Microcytic anemia Narrative/Plan: 68-year-old female with unknown past medical history who is currently confused presented to the emergency department sent in by her rehab facility for concerns for anemia. She was found to have microcytic anemia on presentation with a hemoglobin at 5.9. Iron studies also consistent with an iron deficiency anemia. Patient denies any blood in her stool, black stool, nausea vomiting or hematemesis. She is on Eliquis 5 mg twice daily, Plavix 75 mg daily and aspirin 81 mg daily for unknown reason as medical history is not known at this time. Patient is unsure if she has had previous EGD or colonoscopy. She states that she does not have a history of ulcers. Unclear etiology of anemia, certainly need to consider GI source. Will proceed with EGD and colonoscopy if patient is cooperative. Will obtain consent from family. Will reattempt for EGD and colonoscopy this Wednesday. Will continue bowel prep and clear liquid diet today and tomorrow with plans for Wednesday morning EGD and colonoscopy. Current Visit: Yes Status: Acute Code(s): D50.9 - IRON DEFICIENCY ANEMIA, UNSPECIFIED SNOMED Code(s): 736834278 Plan: 1. Continue symptomatic and supportive care 2. Agree with IV iron, 3. Daily CBC, transfuse for hemoglobin less than 7 4. Resume clear liquid diet 5. Continue bowel prep and may continue to drink today and tomorrow 6. Continue Protonix for GI prophylaxis 7. Plan to reschedule EGD and colonoscopy for Wednesday morning 0700. Further recommendations forthcoming following endoscopy. Thank you for this consultation, gastroenterology will sign off at this time as there will be no further gastroenterology coverage. Dr. Arik Caballero I agree with the dictator's note, documented as a scribe by Samantha Lawson.
[2023-08-07 10:47] LABS: ALT 36 U/L (8-44); AST 62 U/L (13-35); Albumin 2.6 g/dL (3.8-4.9); Albumin/Globulin Ratio 0.74 Ratio (1.60-3.17); Alkaline Phosphatase 84 U/L (41-126); BUN/Creat Ratio 19.67 Ratio (12.00-20.00); Blood Urea Nitrogen 5.9 mg/dL (9.0-27.0); Calcium 8.1 mg/dL (8.7-10.3); Carbon Dioxide 25.3 mmol/L (21.6-31.8); Chloride 107 mmol/L (96-109); Globulin 3.5 g/dL (1.6-3.3); Glucose 79 mg/dL (70-110); Potassium 3.5 mmol/L (3.5-5.5); Sodium 140 mmol/L (135-145); Total Bilirubin 0.5 mg/dL (0.3-1.2); Total Protein 6.1 g/dL (6.2-8.2)
[2023-08-07 11:16] LABS: HCT 23.8 % (37.2-46.3); HGB 6.6 g/dL (12.0-15.0); MCH 19.5 pg (27.0-32.0); MCHC 27.7 g/dL (32.0-37.0); MCV 70.2 FL (80.0-97.0); Mean Platelet Volume 10.1 FL (9.5-12.2); NRBC Per 100 WBC 0 X 10*3/uL (0.00-0.01); Platelet Count 583 X 10*3/uL (140-440); RBC 3.39 X 10*6/uL (4.10-5.20); RDW 25.6 % (11.5-14.5)
--- NOTE | 2023-08-07 13:26 | P.PN ---
Subjective Progress Note Date: 08/07/23 patient IS A 68-year-old lady with past medical history significant for coronary artery disease, PE, dementia who presented to the ER for abnormal labs. Patient is currently residing in a correction facility and was found to have low hemoglobin levels. Patient denies any chest pain or shortness of breath. There is complain of lethargy and weakness. There was no complaint nausea, vomiting abdominal pain. There was no complaint of blood in the stools. Denies any hematemesis. Patient has been taking aspirin, Plavix and Eliquis in outpatient settings. Because of these abnormal labs, patient sent to the ER Initial lab work done in the ER showed WBC 13, hemoglobin 5.9, platelet count 596, sodium 135, potassium 4.8, BUN 12, creatinine 0.33, AST 123, ALT 41, alk phos 131 EKG done in the ER showed heart rate of80 , no ST segment elevation or depression seen, no T-wave inversions seen. Chest x-ray done in the ER elevated right hemidiaphragm, bilateral atelectasis, small right pleural effusion Patient admitted to internal medicine service 08/06. Patient seen and examined. Currently n.p.o., going for EGD and colonoscopy today. Complaining of back pain 08/07. Patient seen and examined. Patient could not complete EGD and colonoscopy yesterday. Patient EGD scheduled for Wednesday morning. Hemoglobin this morning is 6.6, will transfuse 1 unit of packed red blood cell REVIEW OF SYSTEMS: CONSTITUTIONAL: No fever, no malaise,. CARDIOVASCULAR: No chest pain, no palpitations, no syncope. PULMONARY: No shortness of breath, no cough, GASTROINTESTINAL: No diarrhea, no nausea, no vomiting, no abdominal pain. NEUROLOGICAL: No headaches, no weakness, PHYSICAL EXAMINATION: GENERAL: The patient is alert to self, not in any acute distress. Well developed, well nourished. HEENT: Pupils are round and equally reacting to light. EOMI. No scleral icterus. No conjunctival pallor. Normocephalic, atraumatic. No pharyngeal erythema. No thyromegaly. CARDIOVASCULAR: S1 and S2 present. No murmurs, rubs, or gallops. PULMONARY: Chest is clear to auscultation, no wheezing or crackles. ABDOMEN: Soft, nontender, nondistended, normoactive bowel sounds. No palpable organomegaly. MUSCULOSKELETAL: No joint swelling or deformity. EXTREMITIES: No cyanosis, clubbing, or pedal edema. NEUROLOGICAL: Gross neurological examination did not reveal any focal deficits. SKIN: No rashes. Assessment and plan Acute blood loss anemia Iron deficiency anemia Hypertension Hyperlipidemia Coronary artery disease History of PE according to the chart Dementia Monitor vital signs Monitor CBC, hemoglobin is 6.6, will transfuse 1 unit of packed red blood cell Monitor CMP Continue telemetry monitoring Continue Venofer Continue IV Protonix Hold aspirin, Plavix and Eliquis for now GI evaluated the patient, planning EGD and colonoscopy, rescheduled for Wednesday Hematology oncology evaluated patient recommended if a source of bleeding is identified and treated patient can be resumed on her anticoagulation and antiplatelet therapies as prescribed with close monitoring. If no source of bleeding is found then quite possibly cause of iron loss is from sm bowel AVMs. In which case reasonable to see if either of the antiplatelet meds can be stopped from Cardiology standpoint. Cardiology consulted Labs and medication were reviewed.. Continue same treatment. Continue with symptomatic treatment. Resume home medication. Monitor labs and vitals. DVT and GI prophylaxis. Further recommendations as per clinical course of the patient Dictation was produced using [employer] dictation software. please excuse any grammatical, word or spelling errors. Objective - Vital Signs Vital signs: Vital Signs Temp 98.0 F 08/07/23 07:12 Pulse 75 08/07/23 07:12 Resp 19 08/07/23 07:12 BP 111/62 08/07/23 07:12 Pulse Ox 92 L 08/07/23 08:44 FiO2 Intake & Output 08/06/23 08/07/23 08/07/23 18:59 06:59 18:59 Intake Total 710 450 Output Total 500 Balance 710 -50 Weight 68.039 kg 68 kg Intake: IV 10 Invasive Line 1 10 Intake, IV Titration 100 Amount Sodium Ferric Gluconat- 100 Sucrose 125 mg In Sodium Chloride 0.9% 100 ml @ 100 mls/hr IVPB DAILY [facility] Rx#:[id number] Oral 600 450 Output: Urine 500 Other: Voiding Method Diaper Diaper - Labs CBC & Chem 7: 08/07/23 06:17 08/07/23 06:17 Labs: Abnormal Lab Results - Last 24 Hours (Table) 08/05/23 08/07/2308/07/24 Range/Units 00:02 06:17 06:17 WBC 11.50 H (4.50-10.00) X 10*3/uL RBC 3.39 L (4.10-5.20) X 10*6/uL Hgb 6.6 A* (12.0-15.0) g/dL Hct 23.8 L (37.2-46.3) % MCV 70.2 L (80.0-97.0) FL MCH 19.5 L (27.0-32.0) pg MCHC 27.7 L (32.0-37.0) g/dL RDW 25.6 H (11.5-14.5) % Plt Count 583 H (140-440) X 10*3/uL BUN 5.9 L (9.0-27.0) mg/dL Creatinine 0.3 L (0.6-1.5) mg/dL Calcium 8.1 L (8.7-10.3) mg/dL AST 62 H (13-35) U/L Total Protein 6.1 L (6.2-8.2) g/dL Albumin 2.6 L (3.8-4.9) g/dL Globulin 3.5 H (1.6-3.3) g/dL Albumin/Globulin Ratio 0.74 L (1.60-3.17) Ratio Crossmatch See Detail
[2023-08-08] MEDS ORDERED: PROPOFOL 10 MG/ML 20 ML VIAL IV ONE (06:50)
[2023-08-08] MEDS ORDERED: LIDOCAINE 1% INJ 10MG/ML (20 ML MDV) ONE (06:50)
[2023-08-08 06:52] LABS: Anisocytosis Marked; Basophils # (A) 0.1 k/uL (0-0.2); Basophils % (A) 1 %; Eosinophils # (A) 0.4 k/uL (0-0.7); Eosinophils % (A) 4 %; HCT 27.5 % (34.0-46.0); HGB 8.1 gm/dL (11.4-16.0); Hypochromasia Marked; Lymphocytes # (A) 1.9 k/uL (1.0-4.8); Lymphocytes % (A) 19 %; MCH 20.8 pg (25.0-35.0); MCHC 29.6 g/dL (31.0-37.0); MCV 70.4 fL (80.0-100.0); Mean Platelet Volume 7.6; Microcytosis Marked; Monocytes # (A) 0.8 k/uL (0-1.0); Monocytes % (A) 8 %; Neutrophils # (A) 6.7 k/uL (1.3-7.7); Neutrophils % (A) 67 %; Platelet Count 514 k/uL (150-450); Poikilocytosis Marked; RDW 24.9 % (11.5-15.5); WBC 10.1 k/uL (3.8-10.6)
[2023-08-08] MEDS: IV FLUID CONTINUATION 1,000 ML IV ONE (06:53)
--- NOTE | 2023-08-08 07:33 | P.PCN ---
Date of Procedure: 08/08/23 Procedure(s) Performed: Brief history: Patient is a pleasant 68-year-old white female admitted hospital with severe symptomatic anemia and hemoglobin of 5.9 g/dL requiring 2 units of PRBC transition. She has history of colon disease and PE and has been on aspirin, Plavix and Eliquis this is currently on hold. She is scheduled for an elective upper endoscopy as well as colonoscopy to evaluate further. No history of active GI bleeding for Procedure performed: Esophagogastroduodenoscopy with biopsy Colonoscopy Preoperative diagnosis: Severe symptomatic iron deficiency anemia Anesthesia: MAC Procedure: After informed consent was obtained from the patient was brought into the endoscopy unit and IV sedation was administered by anesthesia under continuous monitoring. Initially upper endoscopy was done. The Olympus GF 160 video endoscope was inserted inserted into the mouth and esophagus intubated without any difficulty and was gradually advanced into the stomach and duodenum and carefully examined. The bulb and second part of the duodenum appeared normal. Biopsies were done from the duodenum to rule out celiac disease. The scope was then withdrawn into the stomach adequately insufflated with air and upon careful examination the antrum and body, cardia and fundus appeared normal. The scope was then withdrawn into the esophagus. The GE junction was located at 40 cm to the incisors. It appeared regular with circumferential erythema the GE junction consistent with LA grade a reflux esophagitis.. Rest of the esophagus appeared normal. Patient tolerated the procedure well. At this time the patient continued to remain sedation. Initial digital rectal examination was normal. Olympus CF 160 video colonoscope was then inserted into the rectum and gradually advanced to the cecum without any difficulty. Careful examination was performed as the scope was gradually being withdrawn. The prep was poor and several areas of the colon. The visualized portions of the cecum, ascending colon, transverse colon, descending colon, sigmoid colon and rectum appeared normal. Retroflexion was performed in the rectum and no lesions were noted. Patient tolerated the procedure well. Impression: 1. Upper endoscopy revealed circumferential erythema or the GE junction consi stent with LA grade A reflux esophagitis but no evidence of peptic ulcer disease or angiectasia. 2. Colonoscopy revealed poor prep in several areas of the colon but no evidence of colorectal neoplasia Recommendations: Findings of this examination were discussed with the patient. She will be scheduled for a small bowel capsule endoscopy to evaluate for small bowel source of occult blood loss.
--- NOTE | 2023-08-08 08:50 | P.CRDCN ---
History of Present Illness History of present illness: HISTORY OF PRESENT ILLNESS: This is a 68-year-old female with a past medical history significant for asthma, fibromyalgia, COPD, depression, chronic pain syndrome, alcohol abuse, anxiety, atherosclerosis of left leg, peripheral vascular disease, GERD, and pulmonary embolism. Patient does not follow with a chef head. We have been asked to see the patient in consultation for recommendations regarding Eliquis aspirin, and Plavix. Patient examined at the bedside. [facility] She was brought to the hospital after having outpatient blood work completed and found to be anemic. Patient underwent EGD and colonoscopy this morning revealing circumferential erythema of the GE junction consistent with LA grade a reflux esophagitis but no evidence of peptic ulcer disease or angiectasia. Colonoscopy revealed poor prep in several areas of the colon but n o evidence of colorectal neoplasm. Plan is for small bowel capsule endoscopy. Patient examined this morning at the bedside. Patient is alert and oriented x 2. Patient denies any chest pain or pressure. She denies any shortness of breath. DIAGNOSTICS: - EKG reveals sinus mechanism with no signs of acute ischemia. - Chest xray Elevated left hemidiaphragm, bibasilar atelectasis, small right p leural effusion, heterogeneous interstitial prominence in the right lung - Laboratory data: Hemoglobin 5.9. Repeat 8.1. WBC 10.1. Platelet count 514. Sodium 140. Potassium 3.5. BUN 5.9. Creatinine 0.3. - Current home cardiac medications include Eliquis 5 mg twice a day, metoprolol succinate 25 mg daily, Lasix 20 mg daily, Plavix 75 mg daily, Lipitor 40 mg daily, and aspirin 81 mg daily. REVIEW OF SYSTEMS: At the time of my exam: CONSTITUTIONAL: Denies fever or chills. HEENT: Denies blurred vision, vision changes, or eye pain. Denies hemoptysis CARDIOVASCULAR: Denies chest pain. Denies orthopnea. Denies PND. Denies palpitations RESPIRATORY: Denies shortness of breath. GASTROINTESTINAL: Denies abdominal pain. Denies nausea or vomiting. HEMATOLOGIC: Denies bleeding disorders. GENITOURINARY: Denies any blood in urine. SKIN: Denies pruitis. Denies rash. PHYSICAL EXAM: VITAL SIGNS: Reviewed. GENERAL: Well-developed in no acute distress. HEENT: Head is normocephalic. Pupils are equal, round. Sclerae anicteric. Mucous membranes of the mouth are moist. Neck supple. No JVD or thyromegaly LUNGS: Respirations even and unlabored. Lungs essentially clear to auscultation bilaterally. HEART: Regular rate and rhythm. S1 and S2 heard. ABDOMEN: Soft. Nondistended. Nontender. EXTREMITIES: Normal range of motion. No clubbing or cyanosis. Peripheral pulses intact. No lower extremity edema NEUROLOGIC: Awake and alert. Oriented x 1-2. ASSESSMENT: Acute anemia, etiology unclear, status post endoscopy, scheduled for small bowel capsule endoscopy History of pulmonary embolism, on Eliquis Atherosclerosis of left lower extremity Peripheral vascular disease Hyperlipidemia History of asthma History of fibromyalgia History of COPD History of depression History of chronic pain syndrome History of alcohol abuse History of anxiety History of GERD PLAN: Patient is a poor historian and is unable to provide reasoning of why she is on Eliquis, aspirin, and Plavix. According to her chart, she is on Eliquis due to history of PE. There is no documentation of atrial fibrillation. Patient is also prescribed aspirin and Plavix. There is a history of CAD documented by primary medicine. However patient denies a history of CAD or any previous stenting. However she is not a very reliable historian. There is no CAD documented on patient's medical records sent from [facility]. There is a documentation of peripheral vascular disease and left lower extremity atherosclerosis. The patient has a public guardian. However she does have a son and daughter listed on her contact information. Attempted to call both son and daughter this morning to obtain further history but both numbers went to voicemail. From a cardiac standpoint, would hold aspirin, Plavix, and Eliquis due to acute anemia Further recommendations pending patient course Nurse practitioner note has been reviewed by physician. Signing provider agrees with the documented findings, assessment, and plan of care documented by GRASS CUTTER as a scribe. Past Medical History Past Medical History: Unable to Obtain History of Any Multi-Drug Resistant Organisms: None Reported Past Surgical History: Back Surgery Smoking Status: Former smoker Medications and Allergies Home Medications Medication Instructions Recorded Confirmed Type Acetaminophen [Tylenol Extra 500 mg PO Q6H PRN 08/05/23 08/05/23 History Strength] Alendronate Sodium [Fosamax] 70 mg PO CLEMENT@0600 08/05/23 08/05/23 History Apixaban [Eliquis] 5 mg PO BID 08/05/23 08/05/23 History Ascorbic Acid [Vitamin C] 500 mg PO DAILY@69908/05/23 08/05/23 History Aspirin 81 mg PO DAILY@59908/05/23 08/05/23 History Atorvastatin [Lipitor] 40 mg PO HS@199908/05/23 08/05/23 History Calcium Carbonate/Vitamin D3 1 tab PO DAILY@59908/05/23 08/05/23 History [Calcium 600-Vit D3 5 Mcg (200 Iu)] Clopidogrel [Plavix] 75 mg PO HS@199908/05/23 08/05/23 History Docusate Sodium [Dok] 200 mg PO DAILY@59908/05/23 08/05/23 History Ergocalciferol (Vitamin D2) 1,250 mcg PO WE@59908/05/23 08/05/23 History [Drisdol (50,000 Iu)] FLUoxetine HCL [PROzac] 20 mg PO DAILY@59908/05/23 08/05/23 History Famotidine [Pepcid] 20 mg PO DAILY@59908/05/23 08/05/23 History Fluticasone Propion/Salmeterol 1 puff INHALATION RT-BID@0700,1900 08/05/23 08/05/23 History [Advair 500-50 Diskus] Furosemide [Lasix] 20 mg PO DAILY@69908/05/23 08/05/23 History Lactulose 20 gm PO DAILY PRN 08/05/23 08/05/23 History Lidocaine/Menthol [Icy Hot 4%-1% 1 patch TOPICAL DAILY@69908/05/23 08/05/23 History Patch] Mag Hydrox/Aluminum Hyd/Simeth 10 ml PO Q4H PRN 08/05/23 08/05/23 History [Mylanta Maximum Strength Liq] Magnesium Hydroxide [Milk of 2,400 mg PO Q3D PRN 08/05/23 08/05/23 History Magnesia] Melatonin 3 mg PO HS 08/05/23 08/05/23 History Menthol [Biofreeze] 1 applic TOPICAL QID@07,13,,08/05/23 08/05/23 History Metoprolol Succinate (ER) [Toprol 25 mg PO DAILY@0700 08/05/23 08/05/23 History Xl] Montelukast [Singulair] 10 mg PO HS@199908/05/23 08/05/23 History Multivitamins, Thera [Multivitamin 1 tab PO DAILY@0600 08/05/23 08/05/23 History (formulary)] Mupirocin 2% Oint [Bactroban 2% 1 applic TOPICAL TID PRN 08/05/23 08/05/23 History Oint] Pregabalin [Lyrica] 150 mg PO TID@0700,1300,1900 08/05/23 08/05/23 History Sennosides [Senokot] 17.2 mg PO HS@199908/05/23 08/05/23 History oxyCODONE HCL [oxyCODONE HCL (IR)] 5 mg PO Q6H PRN 08/05/23 08/05/23 History Allergies Allergy/AdvReac Type Severity Reaction Status Date / Time cortisone Allergy Unknown Verified 08/05/23 07:47 lisinopril Allergy Unknown Verified 08/05/23 07:47 methadone Allergy Unknown Verified 08/05/23 07:47 nortriptyline Allergy Unknown Verified 08/05/23 07:47 Physical Exam Vitals: Vital Signs Temp Pulse Pulse Resp BP BP Pulse Ox 08/08/23 07:57 97.5 F L 68 17 109/68 93 L 08/08/23 01:44 97.9 F 77 21 103/59 97 08/07/23 20:40 98.1 F 76 18 98/60 95 08/07/23 19:20 98.5 F 80 20 100/61 95 08/07/23 18:30 98.2 F 81 18 107/65 94 L 08/07/23 18:15 98.0 F 87 18 96/59 08/07/23 18:00 98.3 F 86 18 99/52 08/07/23 17:45 98.1 F 75 19 99/60 93 L 08/07/23 16:22 98.2 F 82 17 90/56 08/07/23 15:55 98.3 F 75 18 103/66 93 L 08/07/23 15:14 98.3 F 77 19 120/67 93 L 08/07/23 13:37 98.2 F 79 19 113/68 95 08/07/23 08:44 92 L Intake and Output 08/07/23 08/08/23 08/08/23 22:59 06:59 14:59 Intake Total 705 1300 Output Total 400 Balance 705 900 Intake: IV 400 Oral 420 900 Blood Product 285 Rc Pheresis 2 As3 Unit 285 [id number] Output: Urine 400 Other: Voiding Method Diaper # Voids 1 Weight 67 kg 102 kg Results 08/08/23 06:21 08/07/23 06:17 Cardiac Enzymes 08/07/23 Range/Units 06:17 AST 62 H (13-35) U/L CBC 08/07/23 08/08/23 Range/Units 06:17 06:21 WBC 11.50 H 10.1 (4.50-10.00) X 10*3/uL RBC 3.39 L 3.90 (4.10-5.20) X 10*6/uL Hgb 6.6 A* 8.1 L (12.0-15.0) g/dL Hct 23.8 L 27.5 L (37.2-46.3) % Plt Count 583 H 514 H (140-440) X 10*3/uL Comprehensive Metabolic Panel 08/07/23 Range/Units 06:17 Sodium 140 (135-145) mmol/L Potassium 3.5 (3.5-5.5) mmol/L Chloride 107 (96-109) mmol/L Carbon Dioxide 25.3 (21.6-31.8) mmol/L BUN 5.9 L (9.0-27.0) mg/dL Creatinine 0.3 L (0.6-1.5) mg/dL Glucose 79 (70-110) mg/dL Calcium 8.1 L (8.7-10.3) mg/dL AST 62 H (13-35) U/L ALT 36 (8-44) U/L Alkaline Phosphatase 84 (41-126) U/L Total Protein 6.1 L (6.2-8.2) g/dL Albumin 2.6 L (3.8-4.9) g/dL Current Medications Generic Name Dose Route Start Last Admin Trade Name Freq PRN Reason Stop Dose Admin Acetaminophen 650 mg 08/05/23 02:08 Acetaminophen Tab 325 Mg Tab PO Q6HR PRN Mild Pain or Fever > 100.5 Acetaminophen 500 mg 08/05/23 09:41 Acetaminophen Tab 500 Mg Tab PO Q6H PRN Mild Pain Ascorbic Acid 500 mg 08/06/23 07:00 08/07/23 06:21 Ascorbic Acid 500 Mg Tab PO 500 mg DAILY@0700 DEBI Administration Atorvastatin Calcium 40 mg 08/05/23 20:00 08/07/23 21:13 Atorvastatin 40 Mg Tab PO 40 mg HS@1999 DEBI Administration Budesonide/Formoterol Fumarate 2 puff 08/05/23 19:00 08/07/23 20:50 Symbicort 160-4.5 Mcg Inhaler INHALATION 2 puff RT-BID@0700,1900 [facility] Administration Fluoxetine HCl 20 mg 08/06/23 06:00 08/08/23 05:17 Fluoxetine Hcl 20 Mg Cap PO Not Given DAILY@0600 [facility] Ferric Sodium Gluconate 125 mg 110 mls @ 100 mls/hr 08/05/23 10:00 08/07/23 09:37 / Sodium Chloride IVPB 100 mls/hr DAILY DEBI Administration Lactated Ringer's 1,000 mls @ 20 mls/hr 08/05/23 22:14 08/07/23 21:13 Lactated Ringers IV 20 mls/hr .Q24H DEBI Administration Lidocaine HCl 0.1 ml 08/05/23 22:14 Lidocaine 1% (10mg/Ml) For Iv Start INTRADERMA PER PROTOCOL PRN IV Start Metoprolol Succinate 25 mg 08/06/23 07:00 08/07/23 06:21 Metoprolol Succinate (Er) 25 Mg Tab.Er.24h PO 25 mg DAILY@0700 DEBI Administration Montelukast Sodium 10 mg 08/05/23 20:00 08/07/23 21:13 Montelukast 10 Mg Tab PO 10 mg HS@1999 DEBI Administration Naloxone HCl 0.2 mg 08/05/23 02:08 Naloxone 0.4 Mg/Ml 1 Ml Vial IV Q2M PRN Opioid Reversal Ondansetron HCl 4 mg 08/05/23 02:08 Ondansetron 4 Mg/2 Ml Vial IVP Q8HR PRN Nausea And Vomiting Oxycodone HCl 5 mg 08/05/23 09:41 08/07/23 21:14 Oxycodone Hcl 5 Mg Tab PO 5 mg Q6H PRN Administration Pain Oxycodone/Acetaminophen 1 each 08/05/23 02:59 08/08/23 00:54 Oxycodone-Apap 5-325mg 1 Each Tab PO 1 each Q6HR PRN Administration Pain Pantoprazole Sodium 40 mg 08/05/23 09:00 08/07/23 21:13 Pantoprazole 40 Mg/10 Ml Vial IV 40 mg BID DEBI Administration Pregabalin 150 mg 08/05/23 13:00 08/07/23 18:38 Pregabalin 75 Mg Cap PO 150 mg TID@0700,1300,1900 DE[facility] Administration Senna 17.2 mg 08/05/23 20:00 08/07/23 21:13 Sennosides 8.6 Mg Tab PO 17.2 mg HS@2000 DEBI Administration Intake and Output 08/07/23 08/08/23 08/08/23 22:59 06:59 14:59 Intake Total 705 1300 Output Total 400 Balance 705 900 Intake: IV 400 Oral 420 900 Blood Product 285 Rc Pheresis 2 As3 Unit 285 [id number] Output: Urine 400 Other: Voiding Method Diaper # Voids 1 Weight 67 kg 102 kg Patient Weight 08/09/23 06:59 Weight 102 kg 08/08/23 06:21 08/07/23 06:17
--- NOTE | 2023-08-08 12:47 | P.PN ---
Subjective Progress Note Date: 08/08/23 patient IS A 68-year-old lady with past medical history significant for coronary artery disease, PE, dementia who presented to the ER for abnormal labs. Patient is currently residing in a shelter facility and was found to have low hemoglobin levels. Patient denies any chest pain or shortness of breath. There is complain of lethargy and weakness. There was no complaint nausea, vomiting abdominal pain. There was no complaint of blood in the stools. Denies any hematemesis. Patient has been taking aspirin, Plavix and Eliquis in outpatient settings. Because of these abnormal labs, patient sent to the ER Initial lab work done in the ER showed WBC 13, hemoglobin 5.9, platelet count 596, sodium 135, potassium 4.8, BUN 12, creatinine 0.33, AST 123, ALT 41, alk phos 131 EKG done in the ER showed heart rate of80 , no ST segment elevation or depression seen, no T-wave inversions seen. Chest x-ray done in the ER elevated right hemidiaphragm, bilateral atelectasis, small right pleural effusion Patient admitted to internal medicine service 08/06. Patient seen and examined. Currently n.p.o., going for EGD and colonoscopy today. Complaining of back pain 08/07. Patient seen and examined. Patient could not complete EGD and colonoscopy yesterday. Patient EGD scheduled for Wednesday morning. Hemoglobin this morning is 6.6, will transfuse 1 unit of packed red blood cell 08/08. Patient seen and examined. Patient went for EGD and colonoscopy this morning. Hemoglobin this morning is 8.1. Currently not in any acute distress. REVIEW OF SYSTEMS: CONSTITUTIONAL: No fever, no malaise,. CARDIOVASCULAR: No chest pain, no palpitations, no syncope. PULMONARY: No shortness of breath, no cough, GASTROINTESTINAL: No diarrhea, no nausea, no vomiting, no abdominal pain. NEUROLOGICAL: No headaches, no weakness, PHYSICAL EXAMINATION: GENERAL: The patient is alert to self, not in any acute distress. Well developed, well nourished. HEENT: Pupils are round and equally reacting to light. EOMI. No scleral icterus. No conjunctival pallor. Normocephalic, atraumatic. No pharyngeal erythema. No thyromegaly. CARDIOVASCULAR: S1 and S2 present. No murmurs, rubs, or gallops. PULMONARY: Chest is clear to auscultation, no wheezing or crackles. ABDOMEN: Soft, nontender, nondistended, normoactive bowel sounds. No palpable organomegaly. MUSCULOSKELETAL: No joint swelling or deformity. EXTREMITIES: No cyanosis, clubbing, or pedal edema. NEUROLOGICAL: Gross neurological examination did not reveal any focal deficits. SKIN: No rashes. Assessment and plan Acute blood loss anemia Iron deficiency anemia Hypertension Hyperlipidemia Coronary artery disease History of PE according to the chart Dementia Monitor vital signs Monitor CBC, hemoglobin is 6.6, will transfuse 1 unit of packed red blood cell Monitor CMP Continue telemetry monitoring Continue Venofer Continue IV Protonix Hold aspirin, Plavix and Eliquis for now Upper endoscopy revealed circumferential erythema or the GE junction consistent with LA grade A reflux esophagitis but no evidence of peptic ulcer disease or angiectasia. Colonoscopy revealed poor prep in several areas of the colon but no evidence of colorectal neoplasia GI following Hematology oncology evaluated patient recommended if a source of bleeding is identified and treated patient can be resumed on her anticoagulation and antiplatelet therapies as prescribed with close monitoring. If no source of bleeding is found then quite possibly cause of iron loss is from sm bowel AVMs. In which case reasonable to see if either of the antiplatelet meds can be stopped from Cardiology standpoint. Cardiology consulted Labs and medication were reviewed.. Continue same treatment. Continue with symptomatic treatment. Resume home medication. Monitor labs and vitals. DVT and GI prophylaxis. Further recommendations as per clinical course of the p atient Dictation was produced using [employer] dictation software. please excuse any grammatical, word or spelling errors. Objective - Vital Signs Vital signs: Vital Signs Temp 97.5 F L 08/08/23 07:57 Pulse 68 08/08/23 07:57 Resp 17 08/08/23 07:57 BP 109/68 08/08/23 07:57 Pulse Ox 93 L 08/08/23 07:57 FiO2 Intake & Output 08/07/23 08/08/23 08/08/23 18:59 06:59 18:59 Intake Total 0 2004 Output Total 400 Balance 0 1605 Weight 67 kg 102 kg Intake: IV 400 Oral 1320 Blood Product 0 285 Rc Pheresis 2 As3 Unit 0 285 [id number] Output: Urine 400 Other: Voiding Method Diaper # Voids 1 1 # Bowel Movements 1 - Labs CBC & Chem 7: 08/08/23 06:21 08/07/23 06:17 Labs: Abnormal Lab Results - Last 24 Hours (Table) 08/05/23 08/07/23 08/07/23 Range/Units 00:02 06:17 06:17 WBC 11.50 H (4.50-10.00) X 10*3/uL RBC 3.39 L (4.10-5.20) X 10*6/uL Hgb 6.6 A* (12.0-15.0) g/dL Hct 23.8 L (37.2-46.3) % MCV 70.2 L (80.0-97.0) FL MCH 19.5 L (27.0-32.0) pg MCHC 27.7 L (32.0-37.0) g/dL RDW 25.6 H (11.5-14.5) % Plt Count 583 H (140-440) X 10*3/uL BUN 5.9 L (9.0-27.0) mg/dL Creatinine 0.3 L (0.6-1.5) mg/dL Calcium 8.1 L (8.7-10.3) mg/dL AST 62 H (13-35) U/L Total Protein 6.1 L (6.2-8.2) g/dL Albumin 2.6 L (3.8-4.9) g/dL Globulin 3.5 H (1.6-3.3) g/dL Albumin/Globulin Ratio 0.74 L (1.60-3.17) Ratio Crossmatch See Detail 08/08/23 Range/Units 06:21 WBC (4.50-10.00) X 10*3/uL RBC (4.10-5.20) X 10*6/uL Hgb 8.1 L (12.0-15.0) g/dL Hct 27.5 L (37.2-46.3) % MCV 70.4 L (80.0-97.0) FL MCH 20.8 L (27.0-32.0) pg MCHC 29.6 L (32.0-37.0) g/dL RDW 24.9 H (11.5-14.5) % Plt Count 514 H (140-440) X 10*3/uL BUN (9.0-27.0) mg/dL Creatinine (0.6-1.5) mg/dL Calcium (8.7-10.3) mg/dL AST (13-35) U/L Total Protein (6.2-8.2) g/dL Albumin (3.8-4.9) g/dL Globulin (1.6-3.3) g/dL Albumin/Globulin Ratio (1.60-3.17) Ratio Crossmatch
--- NOTE | 2023-08-09 09:44 | P.PN ---
Subjective Progress Note Date: 08/09/23 HISTORY OF PRESENT ILLNESS: This is a 68-year-old female with a past medical history significant for asthma, fibromyalgia, COPD, depression, chronic pain syndrome, alcohol abuse, anxiety, atherosclerosis of left leg, peripheral vascular disease, GERD, and pulmonary embolism. Patient does not follow with a deaf/hard of hearing specialist. We have been asked to see the patient in consultation for recommendations regarding Eliquis aspirin, and Plavix. Patient examined at the bedside. [facility] She was brought to the hospital after having outpatient blood work completed and found to be anemic. Patient underwent EGD and colonoscopy this morning revealing circumferential erythema of the GE junction consistent with LA grade a reflux esophagitis but no evidence of peptic ulcer disease or angiectasia. Colonoscopy revealed poor prep in several areas of the colon but no evidence of colorectal neoplasm. Plan is for small bowel capsule endoscopy. Patient examined this morning at the bedside. Patient is alert and oriented x 2. Patient denies any chest pain or pressure. She denies any shortness of breath. DIAGNOSTICS: - EKG reveals sinus mechanism with no signs of acute ischemia. - Chest xray Elevated left hemidiaphragm, bibasilar atelectasis, small right pleural effusion, heterogeneous interstitial prominence in the right lung - Laboratory data: Hemoglobin 5.9. Repeat 8.1. WBC 10.1. Platelet count 514. Sodium 140. Potassium 3.5. BUN 5.9. Creatinine 0.3. - Current home cardiac medications include Eliquis 5 mg twice a day, metoprolol succinate 25 mg daily, Lasix 20 mg daily, Plavix 75 mg daily, Lipitor 40 mg daily, and aspirin 81 mg daily. 08/09 Patient is seen today in follow-up. She denies having any chest pain no palpitations, no edema no dizziness. She states her breathing is okay. Patient denies to us today that she has any cardiac history. Blood pressure 127/63, heart rate 82, pulse ox 91% on room air. No repeat blood work at the time of this dictation. Patient is receiving infusion of Ferrlecit. PHYSICAL EXAM: VITAL SIGNS: Reviewed. GENERAL: Well-developed in no acute distress. HEENT: Head is normocephalic. Pupils are equal, round. Sclerae anicteric. Mucous membranes of the mouth are moist. Neck supple. No JVD or thyromegaly LUNGS: Respirations even and unlabored. Lungs essentially clear to auscultation bilaterally. HEART: Regular rate and rhythm. S1 and S2 heard. ABDOMEN: Soft. Nondistended. Nontender. EXTREMITIES: Normal range of motion. No clubbing or cyanosis. Peripheral pulses intact. No lower extremity edema NEUROLOGIC: Awake and alert. Oriented x 1-2. ASSESSMENT: Acute anemia, etiology unclear, status post endoscopy, scheduled for small bowel capsule endoscopy History of pulmonary embolism, on Eliquis Atherosclerosis of left lower extremity Peripheral vascular disease Hyperlipidemia History of asthma History of fibromyalgia History of COPD History of depression History of chronic pain syndrome History of alcohol abuse History of anxiety History of GERD PLAN: Patient is a poor historian and is unable to provide reasoning of why she is on Eliquis, aspirin, and Plavix. According to her chart, she is on Eliquis due to history of PE. There is no documentation of atrial fibrillation. Patient is also prescribed aspirin and Plavix. There is a history of CAD documented by primary medicine. However patient denies a history of CAD or any previous stenting. However she is not a very reliable historian. There is no CAD documented on patient's medical records sent from [facility]. There is a documentation of peripheral vascular disease and left lower extremity atherosclerosis. The patient has a public guardian. However she does have a son and daughter listed on her contact information. Attempted to call both son and daughter on Wednesday to obtain further history but both numbers went to voicemail. From a cardiac standpoint, would hold aspirin, Plavix, and Eliquis due to acute anemia Obtain 2D echocardiogram Further recommendations pending patient course Nurse practitioner note has been reviewed by physician. Signing provider agrees with the documented findings, assessment, and plan of care documented by [employer]AT [employer]KER MACHINE as a scribe. Objective - Vital Signs Vital signs: Vital Signs Temp 98.2 F 08/09/23 07:41 Pulse 82 08/09/23 07:41 Resp 18 08/09/23 07:41 BP 127/63 08/09/23 07:41 Pulse Ox 91 L 08/09/23 07:41 FiO2 Intake & Output 08/08/23 08/09/23 08/09/23 18:59 06:59 18:59 Intake Total 900 Output Total 210 500 Balance -210 400 Weight 102 kg 101.5 kg Intake: Oral 900 Output: Urine 210 500 Other: Voiding Method Diaper # Bowel Movements 0 1 - Labs CBC & Chem 7: 08/08/23 06:21 08/07/23 06:17
[2023-08-09 12:07] LABS: Anisocytosis Marked; Basophils # (A) 0.1 k/uL (0-0.2); Basophils % (A) 1 %; Eosinophils # (A) 0.4 k/uL (0-0.7); Eosinophils % (A) 4 %; HGB 8.1 gm/dL (11.4-16.0); Hypochromasia Marked; Lymphocytes # (A) 1.6 k/uL (1.0-4.8); Lymphocytes % (A) 19 %; MCHC 28.9 g/dL (31.0-37.0); MCV 72.7 fL (80.0-100.0); Mean Platelet Volume 7.3; Microcytosis Marked; Monocytes # (A) 0.6 k/uL (0-1.0); Monocytes % (A) 7 %; Neutrophils # (A) 5.8 k/uL (1.3-7.7); Neutrophils % (A) 68 %; Platelet Count 480 k/uL (150-450); Poikilocytosis Marked; RBC 3.86 m/uL (3.80-5.40); WBC 8.5 k/uL (3.8-10.6)
[2023-08-09 12:21] LABS: ALT 32 U/L (4-34); AST 57 U/L (14-36); African American GFR (CKD) >90 (>60 ml/min/1.73 sqM); Albumin 2.2 g/dL (3.5-5.0); Albumin/Globulin Ratio 0.6; Alkaline Phosphatase 101 U/L (38-126); Anion Gap 3 mmol/L; Blood Urea Nitrogen 5 mg/dL (7-17); Calcium 7.7 mg/dL (8.4-10.2); Carbon Dioxide 24 mmol/L (22-30); Chloride 112 mmol/L (98-107); Globulin 3.4 g/dL; Glucose 100 mg/dL (74-99); Non-African American GFR(CKD) >90 (>60 ml/min/1.73 sqM); Potassium 3.4 mmol/L (3.5-5.1); Sodium 139 mmol/L (137-145); Total Bilirubin 0.5 mg/dL (0.2-1.3); Total Protein 5.6 g/dL (6.3-8.2)
[2023-08-09 12:26] LABS: RDW 26.4 % (11.5-15.5)
--- NOTE | 2023-08-09 13:37 | P.PN ---
Subjective Progress Note Date: 08/09/23 patient IS A 68-year-old lady with past medical history significant for coronary artery disease, PE, dementia who presented to the ER for abnormal labs. Patient is currently residing in a correction facility and was found to have low hemoglobin levels. Patient denies any chest pain or shortness of breath. There is complain of lethargy and weakness. There was no complaint nausea, vomiting abdominal pain. There was no complaint of blood in the stools. Denies any hematemesis. Patient has been taking aspirin, Plavix and Eliquis in outpatient settings. Because of these abnormal labs, patient sent to the ER Initial lab work done in the ER showed WBC 13, hemoglobin 5.9, platelet count 596, sodium 135, potassium 4.8, BUN 12, creatinine 0.33, AST 123, ALT 41, alk phos 131 EKG done in the ER showed heart rate of80 , no ST segment elevation or depression seen, no T-wave inversions seen. Chest x-ray done in the ER elevated right hemidiaphragm, bilateral atelectasis, small right pleural effusion Patient admitted to internal medicine service 08/06. Patient seen and examined. Currently n.p.o., going for EGD and colonoscopy today. Complaining of back pain 08/07. Patient seen and examined. Patient could not complete EGD and colonoscopy yesterday. Patient EGD scheduled for Wednesday morning. Hemoglobin this morning is 6.6, will transfuse 1 unit of packed red blood cell 08/08. Patient seen and examined. Patient went for EGD and colonoscopy this morning. Upper endoscopy revealed circumferential erythema or the GE junction consistent with LA grade A reflux esophagitis but no evidence of peptic ulcer disease or angiectasia. Colonoscopy revealed poor prep in several areas of the colon but no evidence of colorectal neoplasia .Hemoglobin this morning is 8.1. Currently not in any acute distress. 08/09. Patient seen and examined. No episodes of blood in the stools. Denies any abdominal pain. Cardiology evaluated patient, ordered 2D echo REVIEW OF SYSTEMS: CONSTITUTIONAL: No fever, no malaise,. CARDIOVASCULAR: No chest pain, no palpitations, no syncope. PULMONARY: No shortness of breath, no cough, GASTROINTESTINAL: No diarrhea, no nausea, no vomiting, no abdominal pain. NEUROLOGICAL: No headaches, no weakness, PHYSICAL EXAMINATION: GENERAL: The patient is alert to self, not in any acute distress. Well developed, well nourished. HEENT: Pupils are round and equally reacting to light. EOMI. No scleral icterus. No conjunctival pallor. Normocephalic, atraumatic. No pharyngeal erythema. No thyromegaly. CARDIOVASCULAR: S1 and S2 present. No murmurs, rubs, or gallops. PULMONARY: Chest is clear to auscultation, no wheezing or crackles. ABDOMEN: Soft, nontender, nondistended, normoactive bowel sounds. No palpable organomegaly. MUSCULOSKELETAL: No joint swelling or deformity. EXTREMITIES: No cyanosis, clubbing, or pedal edema. NEUROLOGICAL: Gross neurological examination did not reveal any focal deficits. SKIN: No rashes. Assessment and plan Acute blood loss anemia Iron deficiency anemia Hypertension Hyperlipidemia Coronary artery disease History of PE according to the chart Dementia Monitor vital signs Monitor CBC, hemoglobin is 6.6, will transfuse 1 unit of packed red blood cell Monitor CMP Continue telemetry monitoring Continue Venofer Continue IV Protonix Hold aspirin, Plavix and Eliquis for now Upper endoscopy revealed circumferential erythema or the GE junction consistent with LA grade A reflux esophagitis but no evidence of peptic ulcer disease or angiectasia. Colonoscopy revealed poor prep in several areas of the colon but no evidence of colorectal neoplasia GI following Hematology oncology evaluated patient recommended if a source of bleeding is identified and treated patient can be resumed on her anticoagulation and antipl atelet therapies as prescribed with close monitoring. If no source of bleeding is found then quite possibly cause of iron loss is from sm bowel AVMs. In which case reasonable to see if either of the antiplatelet meds can be stopped from Cardiology standpoint. Cardiology consulted, recommending holding of aspirin and Plavix, ordered 2D echo Labs and medication were reviewed.. Continue same treatment. Continue with symptomatic treatment. Resume home medication. Monitor labs and vitals. DVT and GI prophylaxis. Further recommendations as per clinical course of the patient Dictation was produced using [employer] dictation software. please excuse any grammatical, word or spelling errors. Objective - Vital Signs Vital signs: Vital Signs Temp 98.2 F 08/09/23 07:41 Pulse 82 08/09/23 07:41 Resp 18 08/09/23 07:41 BP 127/63 08/09/23 07:41 Pulse Ox 91 L 08/09/23 07:41 FiO2 Intake & Output 08/08/23 08/09/23 08/09/23 18:59 06:59 18:59 Intake Total 900 Output Total 210 500 Balance -210 400 Weight 102 kg 101.5 kg Intake: Oral 900 Output: Urine 210 500 Other: Voiding Method Diaper # Bowel Movements 0 1 - Labs CBC & Chem 7: 08/09/23 11:43 08/09/23 11:43
--- NOTE | 2023-08-09 18:11 | CA ---
Transthoracic Echo Report Name: Shagufta Leon Age: 68 Gender: F : 1955 Exam Date: 08/09/2023 12:01 Exam Location: [facility] Ht (in): 69 Wt (lb): 223 Ordering Physician: Susanne Coyle Attending/Referring Phys: [id number], Leonides Tank Tester DeLong. Scanlon. RCS Procedure CPT: Indications: LVF Cardiac Hx: Limited study due to patient refusal. Technical Quality: Contrast 1: Total Dose (mL): Contrast 2: Total Dose (mL): MEASUREMENTS (Male / Female) Normal Values 2D ECHO LV Diastolic Diameter PLAX 5.2 cm 4.2 - 5.9 / 3.9 - 5.3 cm LV Systolic Diameter PLAX 3.4 cm IVS Diastolic Thickness 1.1 cm 0.6 - 1.0 / 0.6 - 0.9 cm LVPW Diastolic Thickness 1.0 cm 0.6 - 1.0 / 0.6 - 0.9 cm LV Relative Wall Thickness 0.4 RV Internal Dim ED PLAX 2.7 cm LVOT Diameter 2.2 cm DOPPLER TR Peak Velocity 248.3 cm/s TR Peak Gradient 24.7 mmHg PV Peak Velocity 70.6 cm/s PV Peak Gradient 2.0 mmHg FINDINGS Left Ventricle Left ventricular ejection fraction is estimated at 55-60 %. Mildly increased septal wall thickness. Mildly increased posterior wall thickness. Left ventricular cavity size normal. No obvious regional wall motion abnormalities. Right Ventricle Normal right ventricular size and function. Right Atrium Right atrium not well visualized. Left Atrium Left atrium not well visualized. Mitral Valve Structurally normal mitral valve. No mitral stenosis, regurgitation or prolapse. Aortic Valve Trileaflet aortic valve. Diffuse thickening (sclerosis) of the aortic valve cusps without reduced excursion. No aortic valve stenosis or regurgitation. Tricuspid Valve Structurally normal tricuspid valve. No tricuspid stenosis,or prolapse.mild tricuspid regurgitation. Pulmonic Valve Pulmonic valve not well visualized. No pulmonic stenosis. No pulmonic regurgitation. Pericardium No pericardial effusion. Aorta Normal size aortic root and proximal ascending aorta. CONCLUSIONS Technically limited study. Normal left ventricle size and systolic function Mild tricuspid regurgitation Previewed by: Dr. Lisbeth Singh MD (Electronically Signed) Final Date: 09 August 2023 18:10
--- NOTE | 2023-08-10 09:03 | P.PN ---
Subjective Progress Note Date: 08/10/23 HISTORY OF PRESENT ILLNESS: This is a 68-year-old female with a past medical history significant for asthma, fibromyalgia, COPD, depression, chronic pain syndrome, alcohol abuse, anxiety, atherosclerosis of left leg, peripheral vascular disease, GERD, and pulmonary embolism. Patient does not follow with a reporting consultant. We have been asked to see the patient in consultation for recommendations regarding Eliquis aspirin, and Plavix. Patient examined at the bedside. [facility] She was brought to the hospital after having outpatient blood work completed and found to be anemic. Patient underwent EGD and colonoscopy this morning revealing circumferential erythema of the GE junction consistent with LA grade a reflux esophagitis but no evidence of peptic ulcer disease or angiectasia. Colonoscopy revealed poor prep in several areas of the colon but no evidence of colorectal neoplasm. Plan is for small bowel capsule endoscopy. Patient examined this morning at the bedside. Patient is alert and oriented x 2. Patient denies any chest pain or pressure. She denies any shortness of breath. DIAGNOSTICS: - EKG reveals sinus mechanism with no signs of acute ischemia. - Chest xray Elevated left hemidiaphragm, bibasilar atelectasis, small right pleural effusion, heterogeneous interstitial prominence in the right lung - Laboratory data: Hemoglobin 5.9. Repeat 8.1. WBC 10.1. Platelet count 514. Sodium 140. Potassium 3.5. BUN 5.9. Creatinine 0.3. - Current home cardiac medications include Eliquis 5 mg twice a day, metoprolol succinate 25 mg daily, Lasix 20 mg daily, Plavix 75 mg daily, Lipitor 40 mg daily, and aspirin 81 mg daily. 08/09 Patient is seen today in follow-up. She denies having any chest pain no palpitations, no edema no dizziness. She states her breathing is okay. Patient denies to us today that she has any cardiac history. Blood pressure 127/63, heart rate 82, pulse ox 91% on room air. No repeat blood work at the time of this dictation. Patient is receiving infusion of Ferrlecit. 08/10 Echocardiogram reveals normal left ventricular size and systolic function. Mild tricuspid regurgitation. Attempted to review results with the patient and obtain more history but patient is unable to provide any reliable medical history. Reviewed the patient's chart including fpc documentation. Patient does not appear to have any history of coronary artery disease. PHYSICAL EXAM: VITAL SIGNS: Reviewed. GENERAL: Well-developed in no acute distress. HEENT: Head is normocephalic. Pupils are equal, round. Sclerae anicteric. Mucous membranes of the mouth are moist. Neck supple. No JVD or thyromegaly LUNGS: Respirations even and unlabored. Lungs essentially clear to auscultation bilaterally. HEART: Regular rate and rhythm. S1 and S2 heard. ABDOMEN: Soft. Nondistended. Nontender. EXTREMITIES: Normal range of motion. No clubbing or cyanosis. Peripheral pulses intact. No lower extremity edema NEUROLOGIC: Awake and alert. Oriented x 1-2. ASSESSMENT: Acute anemia, etiology unclear, status post endoscopy, scheduled for small bowel capsule endoscopy History of pulmonary embolism, on Eliquis Atherosclerosis of left lower extremity Peripheral vascular disease Hyperlipidemia History of asthma History of fibromyalgia History of COPD History of depression History of chronic pain syndrome History of alcohol abuse History of anxiety History of GERD PLAN: Patient is a poor historian and is unable to provide reasoning of why she is on Eliquis, aspirin, and Plavix. Would not recommend triple therapy No cardiac indication for the above medications found. We will leave it up to the attending to determine the reason for the medications and whether those will need to be continued. Cardiology will sign off this case and follow on an as-needed basis. Please reconsult for any new concerns. Nurse practitioner note has been reviewed by physician. Signing provider agrees with the documented findings, assessment, and plan of care documented by CANCER GENETIC COUNSELOR as a scribe. Objective - Vital Signs Vital signs: Vital Signs Temp 98.6 F 08/10/23 07:30 Pulse 65 08/10/23 07:30 Resp 18 08/10/23 07:30 BP 112/63 08/10/23 07:30 Pulse Ox 92 L 08/10/23 07:30 FiO2 Intake & Output 08/09/23 08/10/23 08/10/23 18:59 06:59 18:59 Output Total 200 Balance -200 Weight 104 kg Output: Urine 200 Other: Voiding Method Diaper Diaper External Catheter External Catheter # Voids 1 - Labs CBC & Chem 7: 08/09/23 11:43 08/09/23 11:43 Labs: Abnormal Lab Results - Last 24 Hours (Table) 08/09/23 08/09/23 Range/Units 11:43 11:43 Hgb 8.1 L (11.4-16.0) gm/dL Hct 28.0 L (34.0-46.0) % MCV 72.7 L (80.0-100.0) fL MCH 21.0 L (25.0-35.0) pg MCHC 28.9 L (31.0-37.0) g/dL RDW 26.4 H (11.5-15.5) % Plt Count 480 H (150-450) k/uL Potassium 3.4 L (3.5-5.1) mmol/L Chloride 112 H (98-107) mmol/L BUN 5 L (7-17) mg/dL Creatinine 0.31 L (0.52-1.04) mg/dL Glucose 100 H (74-99) mg/dL Calcium 7.7 L (8.4-10.2) mg/dL AST 57 H (14-36) U/L Total Protein 5.6 L (6.3-8.2) g/dL Albumin 2.2 L (3.5-5.0) g/dL
[2023-08-10 12:59] LABS: Basophils # (A) 0.09 X 10*3/uL (0.00-0.10); Basophils % (A) 0.8 %; Eosinophils # (A) 0.75 X 10*3/uL (0.04-0.35); Eosinophils % (A) 6.8 %; HCT 27.7 % (37.2-46.3); Lymphocytes # (A) 1.88 X 10*3/uL (0.90-5.00); Lymphocytes % (A) 17.1 %; MCH 21.7 pg (27.0-32.0); MCHC 28.9 g/dL (32.0-37.0); MCV 75.1 FL (80.0-97.0); Mean Platelet Volume 10.6 FL (9.5-12.2); Monocytes # (A) 0.79 X 10*3/uL (0.20-1.00); Monocytes % (A) 7.2 %; NRBC Per 100 WBC 0 X 10*3/uL (0.00-0.01); Neutrophils # (A) 7.41 X 10*3/uL (1.80-7.70); Neutrophils % (A) 67.5 %; Platelet Count 570 X 10*3/uL (140-440); RBC 3.69 X 10*6/uL (4.10-5.20); RDW 29.2 % (11.5-14.5); WBC 10.99 X 10*3/uL (4.50-10.00)
[2023-08-10 13:16] LABS: ALT 31 U/L (8-44); AST 46 U/L (13-35); Albumin 2.4 g/dL (3.8-4.9); Albumin/Globulin Ratio 0.73 Ratio (1.60-3.17); Alkaline Phosphatase 94 U/L (41-126); BUN/Creat Ratio 18.33 Ratio (12.00-20.00); Blood Urea Nitrogen 5.5 mg/dL (9.0-27.0); Calcium 7.9 mg/dL (8.7-10.3); Carbon Dioxide 21.9 mmol/L (21.6-31.8); Chloride 110 mmol/L (96-109); Globulin 3.3 g/dL (1.6-3.3); Glucose 79 mg/dL (70-110); Potassium 3.6 mmol/L (3.5-5.5); Sodium 141 mmol/L (135-145); Total Bilirubin 0.3 mg/dL (0.3-1.2); Total Protein 5.7 g/dL (6.2-8.2)
[2023-08-10] MEDS: FERROUS SULFATE 325 MG TAB PO SCH (16:47)
--- NOTE | 2023-08-10 21:32 | P.PN ---
Subjective Progress Note Date: 08/10/23 Principal diagnosis: Microcytic, hypochromic anemia In follow-up today when I entered the patient's room she was looking at the lunch menu, when I asked her questions she closed her eyes, when I asked her if she wanted to call and order some lunch she opened her eyes and asked me to show her how to do that. She did not answer any other questions. Objective - Vital Signs Vital signs: Vital Signs Temp 98.6 F 08/10/23 07:30 Pulse 65 08/10/23 07:30 Resp 18 08/10/23 07:30 BP 112/63 08/10/23 07:30 Pulse Ox 88 L 08/10/23 10:03 FiO2 Intake & Output 08/09/23 08/10/23 08/10/23 18:59 06:59 18:59 Output Total 200 Balance -200 Weight 104 kg Output: Urine 200 Other: Voiding Method Diaper Diaper External Catheter External Catheter External Catheter # Voids 1 - Constitutional General appearance: Present: cooperative, morbidly obese, no acute distress - EENT Eyes: Present: anicteric sclerae, EOMI ENT: Present: hearing grossly normal - Respiratory Details: resp even and unlabored - Gastrointestinal General gastrointestinal: Present: soft - Integumentary Integumentary Comment(s): Multiple bruises on the arms Integumentary: Present: pale - Neurologic Neurologic: Present: CNII-XII intact - Musculoskeletal Musculoskeletal: Present: generalized weakness - Psychiatric Psychiatric Comment(s): Alert, speaks when she wants to, unable to determine orientation as she will not answer questions, she will follow some commands. - Labs CBC & Chem 7: 08/10/23 07:20 08/10/23 07:20 Labs: Abnormal Lab Results - Last 24 Hours (Table) 08/10/23 Range/Units 07:20 WBC 10.99 H (4.50-10.00) X 10*3/uL RBC 3.69 L (4.10-5.20) X 10*6/uL Hgb 8.0 L (12.0-15.0) g/dL Hct 27.7 L (37.2-46.3) % MCV 75.1 L (80.0-97.0) FL MCH 21.7 L (27.0-32.0) pg MCHC 28.9 L (32.0-37.0) g/dL RDW 29.2 H (11.5-14.5) % Plt Count 570 H (140-440) X 10*3/uL Immature Gran # 0.07 H (0.00-0.04) X 10*3/uL Eosinophils # 0.75 H (0.04-0.35) X 10*3/uL Assessment and Plan (1) Microcytic hypochromic anemia Current Visit: Yes Status: Acute Priority: High Code(s): D50.9 - IRON DEFICIENCY ANEMIA, UNSPECIFIED SNOMED Code(s): 86356949 (2) Thrombocythemia Current Visit: Yes Status: Acute Code(s): D75.839 - THROMBOCYTOSIS, UNSPECIFIED SNOMED Code(s): 6007526 Plan: Microcytic hypochromic anemia -Hemoglobin 5.9 on admission. She has received 2 units PRBCs since admit. Hgb 8 today. -No other labs in this medical record to compare to, no reports of a transfusion before. Anemia is of new onset -Patient is on Eliquis for atrial fibrillation. No documentation as to why the patient is on aspirin and Plavix or how long she has been on. The staff at [facility] did not have this info either. Cardiology reviewing case regarding aspirin and Plavix to see if any can be stopped. -Iron saturation low. Pending ferritin, B12, folate and reticulocyte count. -Parenteral iron has already been ordered by IM, no side effects reported -GI evaluation for iron deficient anemia. No gross source of bleeding identified. Capsule mentioned. -If a source of bleeding is identified and able to be treated patient can be resumed on her anticoagulation and antiplatelet therapies as prescribed with close monitoring. If no source of bleeding is found then quite possibly cause of iron loss is from sm bowel AVMs. In which case reasonable to see if either of the antiplatelet meds can be stopped from Cardiology standpoint. Recommendation will be for very close hemoglobin and iron monitoring with aggressive iron supplementation as needed.
[2023-08-11 08:41] LABS: Basophils # (A) 0.07 X 10*3/uL (0.00-0.10); Basophils % (A) 0.6 %; Eosinophils # (A) 0.64 X 10*3/uL (0.04-0.35); Eosinophils % (A) 5.3 %; HCT 27.9 % (37.2-46.3); Lymphocytes # (A) 2.15 X 10*3/uL (0.90-5.00); Lymphocytes % (A) 17.7 %; MCH 21.4 pg (27.0-32.0); MCHC 28.7 g/dL (32.0-37.0); MCV 74.8 FL (80.0-97.0); Mean Platelet Volume 9.9 FL (9.5-12.2); Monocytes # (A) 0.82 X 10*3/uL (0.20-1.00); Monocytes % (A) 6.8 %; NRBC Per 100 WBC 0 X 10*3/uL (0.00-0.01); Neutrophils # (A) 8.36 X 10*3/uL (1.80-7.70); Neutrophils % (A) 68.9 %; Platelet Count 523 X 10*3/uL (140-440); RBC 3.73 X 10*6/uL (4.10-5.20); RDW 30.5 % (11.5-14.5); WBC 12.13 X 10*3/uL (4.50-10.00)
[2023-08-11 08:58] LABS: Blood Urea Nitrogen 8.1 mg/dL (9.0-27.0); Calcium 8.1 mg/dL (8.7-10.3); Carbon Dioxide 22.8 mmol/L (21.6-31.8); Chloride 110 mmol/L (96-109); Glucose 86 mg/dL (70-110); Potassium 3.7 mmol/L (3.5-5.5); Sodium 141 mmol/L (135-145)
--- NOTE | 2023-08-11 09:08 | P.PN ---
Subjective Progress Note Date: 08/10/23 patient IS A 68-year-old lady with past medical history significant for coronary artery disease, PE, dementia who presented to the ER for abnormal labs. Patient is currently residing in a long-term facility and was found to have low hemoglobin levels. Patient denies any chest pain or shortness of breath. There is complain of lethargy and weakness. There was no complaint nausea, vomiting abdominal pain. There was no complaint of blood in the stools. Denies any hematemesis. Patient has been taking aspirin, Plavix and Eliquis in outpatient settings. Because of these abnormal labs, patient sent to the ER Initial lab work done in the ER showed WBC 13, hemoglobin 5.9, platelet count 596, sodium 135, potassium 4.8, BUN 12, creatinine 0.33, AST 123, ALT 41, alk phos 131 EKG done in the ER showed heart rate of80 , no ST segment elevation or depression seen, no T-wave inversions seen. Chest x-ray done in the ER elevated right hemidiaphragm, bilateral atelectasis, small right pleural effusion Patient admitted to internal medicine service 08/06. Patient seen and examined. Currently n.p.o., going for EGD and colonoscopy today. Complaining of back pain 08/07. Patient seen and examined. Patient could not complete EGD and colonoscopy yesterday. Patient EGD scheduled for Wednesday morning. Hemoglobin this morning is 6.6, will transfuse 1 unit of packed red blood cell 08/08. Patient seen and examined. Patient went for EGD and colonoscopy this morning. Upper endoscopy revealed circumferential erythema or the GE junction consistent with LA grade A reflux esophagitis but no evidence of peptic ulcer disease or angiectasia. Colonoscopy revealed poor prep in several areas of the colon but no evidence of colorectal neoplasia .Hemoglobin this morning is 8.1. Currently not in any acute distress. 08/09. Patient seen and examined. No episodes of blood in the stools. Denies any abdominal pain. Cardiology evaluated patient, ordered 2D echo 08/10/2023 Patient is currently resting in bed. Patient is awake alert but still confused at baseline. No complaints of chest pain or shortness of breath. No bowel movement for the last few days. Laboratory data showed WBC 10.9 hemoglobin 8.0 and platelets 570. BUN 5.5 and creatinine 0.3. CONSTITUTIONAL: No fever, no malaise,. CARDIOVASCULAR: No chest pain, no palpitations, no syncope. PULMONARY: No shortness of breath, no cough, GASTROINTESTINAL: No diarrhea, no nausea, no vomiting, no abdominal pain. NEUROLOGICAL: No headaches, no weakness, PHYSICAL EXAMINATION: GENERAL: The patient is alert to self, not in any acute distress. Well developed, well nourished. HEENT: Pupils are round and equally reacting to light. EOMI. No scleral icterus. No conjunctival pallor. Normocephalic, atraumatic. No pharyngeal erythema. No thyromegaly. CARDIOVASCULAR: S1 and S2 present. No murmurs, rubs, or gallops. PULMONARY: Chest is clear to auscultation, no wheezing or crackles. ABDOMEN: Soft, nontender, nondistended, normoactive bowel sounds. No palpable organomegaly. MUSCULOSKELETAL: No joint swelling or deformity. EXTREMITIES: No cyanosis, clubbing, or pedal edema. NEUROLOGICAL: Gross neurological examination did not reveal any focal deficits. SKIN: No rashes. Assessment and plan Acute blood loss anemia. Possible GI bleed. Status post EGD and colonoscopy. EGD showed LA grade a reflux esophagitis. Microcytic Iron deficiency anemia Hypertension Hyperlipidemia Coronary artery disease History of PE according to the chart Dementia Monitor vital signs Monitor CBC, hemoglobin is 6.6, will transfuse 1 unit of packed red blood cell Monitor CMP Continue telemetry monitoring Continue Venofer Continue IV Protonix Hold aspirin, Plavix and Eliquis for now Upper endoscopy revealed circumferential erythema or the GE junction consistent with LA grade A reflux esophagitis but no evidence of peptic ulcer disease or a ngiectasia. Colonoscopy revealed poor prep in several areas of the colon but no evidence of colorectal neoplasia GI following Hematology oncology evaluated patient recommended if a source of bleeding is identified and treated patient can be resumed on her anticoagulation and antiplatelet therapies as prescribed with close monitoring. If no source of bleeding is found then quite possibly cause of iron loss is from sm bowel AVMs. In which case reasonable to see if either of the antiplatelet meds can be stopped from Cardiology standpoint. Cardiology consulted, recommending holding of aspirin and Plavix, ordered 2D echo Labs and medication were reviewed.. Continue same treatment. Resume home medication. Monitor labs and vitals. DVT and GI prophylaxis. Further recommendations as per clinical course of the patient Dictation was produced using [employer] dictation software. please excuse any grammatical, word or spelling errors. Objective - Vital Signs Vital signs: Vital Signs Temp 98.6 F 08/10/23 07:30 Pulse 65 08/10/23 07:30 Resp 18 08/10/23 07:30 BP 112/63 08/10/23 07:30 Pulse Ox 88 L 08/10/23 10:03 FiO2 Intake & Output 08/09/23 08/10/23 08/10/23 18:59 06:59 18:59 Output Total 200 Balance -200 Weight 104 kg Output: Urine 200 Other: Voiding Method Diaper Diaper External Catheter External Catheter External Catheter # Voids 1 - Labs CBC & Chem 7: 08/11/23 04:18 08/11/23 04:18 Labs: Abnormal Lab Results - Last 24 Hours (Table) 08/09/23 08/09/23 Range/Units 11:43 11:43 Hgb 8.1 L (11.4-16.0) gm/dL Hct 28.0 L (34.0-46.0) % MCV 72.7 L (80.0-100.0) fL MCH 21.0 L (25.0-35.0) pg MCHC 28.9 L (31.0-37.0) g/dL RDW 26.4 H (11.5-15.5) % Plt Count 480 H (150-450) k/uL Potassium 3.4 L (3.5-5.1) mmol/L Chloride 112 H (98-107) mmol/L BUN 5 L (7-17) mg/dL Creatinine 0.31 L (0.52-1.04) mg/dL Glucose 100 H (74-99) mg/dL Calcium 7.7 L (8.4-10.2) mg/dL AST 57 H (14-36) U/L Total Protein 5.6 L (6.3-8.2) g/dL Albumin 2.2 L (3.5-5.0) g/dL
--- NOTE | 2023-08-11 17:20 | P.PN ---
Subjective Progress Note Date: 08/11/23 Principal diagnosis: Microcytic, hypochromic anemia In follow-up today pt sleeping soundly, she did not answer any questions today for me. Objective - Vital Signs Vital signs: Vital Signs Temp 98.2 F 08/11/23 14:09 Pulse 77 08/11/23 14:09 Resp 19 08/11/23 14:09 BP 120/66 08/11/23 14:09 Pulse Ox 95 08/11/23 14:09 FiO2 Intake & Output 08/10/23 08/11/23 08/11/23 18:59 06:59 18:59 Output Total 600 150 Balance -600 -150 Weight 101.5 kg Output: Urine 600 150 Other: Voiding Method External Catheter External Catheter # Bowel Movements 1 - Constitutional General appearance: Present: morbidly obese - EENT Eyes: Present: anicteric sclerae - Respiratory Details: resp even and unlabored at rest - Musculoskeletal Musculoskeletal: Present: generalized weakness - Psychiatric Psychiatric: Absent: appropriate affect, intact judgment & insight - Labs CBC & Chem 7: 08/11/23 04:18 08/11/23 04:18 Labs: Abnormal Lab Results - Last 24 Hours (Table) 08/11/23 08/11/23 Range/Units 04:18 04:18 WBC 12.13 H (4.50-10.00) X 10*3/uL RBC 3.73 L (4.10-5.20) X 10*6/uL Hgb 8.0 L (12.0-15.0) g/dL Hct 27.9 L (37.2-46.3) % MCV 74.8 L (80.0-97.0) FL MCH 21.4 L (27.0-32.0) pg MCHC 28.7 L (32.0-37.0) g/dL RDW 30.5 H (11.5-14.5) % Plt Count 523 H (140-440) X 10*3/uL Immature Gran # 0.09 H (0.00-0.04) X 10*3/uL Neutrophils # 8.36 H (1.80-7.70) X 10*3/uL Eosinophils # 0.64 H (0.04-0.35) X 10*3/uL Chloride 110 H (96-109) mmol/L BUN 8.1 L (9.0-27.0) mg/dL Creatinine 0.3 L (0.6-1.5) mg/dL BUN/Creatinine Ratio 27.00 H (12.00-20.00) Ratio Calcium 8.1 L (8.7-10.3) mg/dL Assessment and Plan (1) Microcytic hypochromic anemia Current Visit: Yes Status: Acute Priority: High Code(s): D50.9 - IRON DEFICIENCY ANEMIA, UNSPECIFIED SNOMED Code(s): 65054972 (2) Thrombocythemia Current Visit: Yes Status: Acute Code(s): D75.839 - THROMBOCYTOSIS, UNSPECIFIED SNOMED Code(s): 9663469 Plan: Microcytic hypochromic anemia -Hemoglobin 5.9 on admission. She has received 2 units PRBCs since admit. Hgb 8 today. -No other labs in this medical record to compare to, no reports of a transfusion before. Anemia is of new onset -Patient was on Eliquis for atrial fibrillation. Reviewed case with Attending, no episodes of afib reported. Hospital Cleaning Specialist recommends holding for now -No documentation as to why the patient is on aspirin and Plavix or how long she has been on. The staff at [facility] did not have this info either. Cardiology reviewed case, can find no reason for pt to be on. Asa and plavix have been stopped. -Iron saturation low, ferritin 11.4. Pt has received IV iron and now is on oral iron. Retic elevated though not what would be expected with a Hgb in 6 range. -B12 618, folate 19, no supplement needed. -GI evaluation for iron deficient anemia. No gross source of bleeding identified. Capsule mentioned. -It is noted in office chart that [facility]CF was contacted and asked to call ofc to get pt f/u appt
[2023-08-12 08:25] VITALS: BMI 31.1
[2023-08-12 10:50] LABS: Basophils # (A) 0.05 X 10*3/uL (0.00-0.10); Basophils % (A) 0.5 %; Eosinophils # (A) 0.37 X 10*3/uL (0.04-0.35); Eosinophils % (A) 3.6 %; HCT 27.8 % (37.2-46.3); HGB 7.9 g/dL (12.0-15.0); Lymphocytes # (A) 1.81 X 10*3/uL (0.90-5.00); Lymphocytes % (A) 17.5 %; MCH 21.8 pg (27.0-32.0); MCHC 28.4 g/dL (32.0-37.0); MCV 76.6 FL (80.0-97.0); Monocytes # (A) 0.92 X 10*3/uL (0.20-1.00); Monocytes % (A) 8.9 %; NRBC Per 100 WBC 0 X 10*3/uL (0.00-0.01); Neutrophils # (A) 7.12 X 10*3/uL (1.80-7.70); Platelet Count 494 X 10*3/uL (140-440); RBC 3.63 X 10*6/uL (4.10-5.20); RDW 31.8 % (11.5-14.5); WBC 10.32 X 10*3/uL (4.50-10.00)
[2023-08-12 10:59] LABS: Blood Urea Nitrogen 10.2 mg/dL (9.0-27.0); Carbon Dioxide 22.2 mmol/L (21.6-31.8); Chloride 111 mmol/L (96-109); Glucose 99 mg/dL (70-110); Potassium 4.1 mmol/L (3.5-5.5); Sodium 142 mmol/L (135-145)
--- NOTE | 2023-08-12 14:11 | P.PN ---
Subjective Progress Note Date: 08/11/23 patient IS A 68-year-old lady with past medical history significant for coronary artery disease, PE, dementia who presented to the ER for abnormal labs. Patient is currently residing in a long term facility and was found to have low hemoglobin levels. Patient denies any chest pain or shortness of breath. There is complain of lethargy and weakness. There was no complaint nausea, vomiting abdominal pain. There was no complaint of blood in the stools. Denies any hematemesis. Patient has been taking aspirin, Plavix and Eliquis in outpatient settings. Because of these abnormal labs, patient sent to the ER Initial lab work done in the ER showed WBC 13, hemoglobin 5.9, platelet count 596, sodium 135, potassium 4.8, BUN 12, creatinine 0.33, AST 123, ALT 41, alk phos 131 EKG done in the ER showed heart rate of80 , no ST segment elevation or depression seen, no T-wave inversions seen. Chest x-ray done in the ER elevated right hemidiaphragm, bilateral atelectasis, small right pleural effusion Patient admitted to internal medicine service 08/06. Patient seen and examined. Currently n.p.o., going for EGD and colonoscopy today. Complaining of back pain 08/07. Patient seen and examined. Patient could not complete EGD and colonoscopy yesterday. Patient EGD scheduled for Wednesday morning. Hemoglobin this morning is 6.6, will transfuse 1 unit of packed red blood cell 08/08. Patient seen and examined. Patient went for EGD and colonoscopy this morning. Upper endoscopy revealed circumferential erythema or the GE junction consistent with LA grade A reflux esophagitis but no evidence of peptic ulcer disease or angiectasia. Colonoscopy revealed poor prep in several areas of the colon but no evidence of colorectal neoplasia .Hemoglobin this morning is 8.1. Currently not in any acute distress. 08/09. Patient seen and examined. No episodes of blood in the stools. Denies any abdominal pain. Cardiology evaluated patient, ordered 2D echo 08/10/2023 Patient is currently resting in bed. Patient is awake alert but still confused at baseline. No complaints of chest pain or shortness of breath. No bowel movement for the last few days. Laboratory data showed WBC 10.9 hemoglobin 8.0 and platelets 570. BUN 5.5 and creatinine 0.3. 08/11/2023 Patient is currently resting in the bed. Awake alert and oriented. Able to tolerate oral diet. Patient did have a bowel movement today otherwise. No dark-colored stools noted. Denies any abdominal pain. Hemoglobin is 8.0 today. WBC 12.1 and platelets 523, potassium 3.7 chloride 110 bicarb is 22.8 BUN 8.1 creatinine 0.3 and blood sugar 86. Calcium 8.1. Antiplatelets and Eliquis is on hold currently until follow-up with oncology in the clinic. Discussed with oncology team. CONSTITUTIONAL: No fever, no malaise,. CARDIOVASCULAR: No chest pain, no palpitations, no syncope. PULMONARY: No shortness of breath, no cough, GASTROINTESTINAL: No diarrhea, no nausea, no vomiting, no abdominal pain. NEUROLOGICAL: No headaches, no weakness, PHYSICAL EXAMINATION: GENERAL: The patient is alert to self, not in any acute distress. Well developed, well nourished. HEENT: Pupils are round and equally reacting to light. EOMI. No scleral icterus. No conjunctival pallor. Normocephalic, atraumatic. No pharyngeal erythema. No thyromegaly. CARDIOVASCULAR: S1 and S2 present. No murmurs, rubs, or gallops. PULMONARY: Chest is clear to auscultation, no wheezing or crackles. ABDOMEN: Soft, nontender, nondistended, normoactive bowel sounds. No palpable organomegaly. MUSCULOSKELETAL: No joint swelling or deformity. EXTREMITIES: No cyanosis, clubbing, or pedal edema. NEUROLOGICAL: Gross neurological examination did not reveal any focal deficits. SKIN: No rashes. Assessment and plan Acute blood loss anemia. Possible GI bleed. Status post EGD and colonoscopy. EGD showed LA grade a reflux esophagitis. No active bleeding noted. Small bowel capsule endoscopy to be scheduled as outpatient. Microcytic Iron deficiency anemia Hypertension Hyperlipidemia Coronary artery disease History of PE according to the chart Dementia Monitor vital signs Monitor CBC, hemoglobin is 6.6, will transfuse 1 unit of packed red blood cell Monitor CMP Continue telemetry monitoring Continue Venofer Continue IV Protonix Hold aspirin, Plavix and Eliquis for now Upper endoscopy revealed circumferential erythema or the GE junction consistent with LA grade A reflux esophagitis but no evidence of peptic ulcer disease or angiectasia. Colonoscopy revealed poor prep in several areas of the colon but no evidence of colorectal neoplasia Patient was seen by GI. Will be scheduled for a small bowel capsule endoscopy to evaluate for small bowel source of occult blood loss. Hematology oncology evaluated patient recommended if a source of bleeding is identified and treated patient can be resumed on her anticoagulation and antiplatelet therapies as prescribed with close monitoring. If no source of bleeding is found then quite possibly cause of iron loss is from sm bowel AVMs. In which case reasonable to see if either of the antiplatelet meds can be stopped from Cardiology standpoint. Aspirin Plavix and Eliquis is on hold. Discussed with oncology team. Blood thinners will be on hold until follow-up with oncology in the clinic. Cardiology consulted, recommending holding of aspirin and Plavix, 2D echocardiogram showed normal left ventricular size and systolic function. Mild tricuspid regurgitation. Labs and medication were reviewed.. Monitor labs and vitals. DVT and GI prophylaxis. Dictation was produced using [employer] dictation software. please excuse any grammatical, word or spelling errors. Objective - Vital Signs Vital signs: Vital Signs Temp 98.2 F 08/11/23 14:09 Pulse 77 08/11/23 14:09 Resp 19 08/11/23 14:09 BP 120/66 08/11/23 14:09 Pulse Ox 95 08/11/23 14:09 FiO2 Intake & Output 08/11/23 08/11/23 08/12/23 06:59 18:59 06:59 Output Total 150 450 Balance -150 -450 Weight 101.5 kg Output: Urine 150 450 Other: Voiding Method External Catheter # Bowel Movements 1 - Labs CBC & Chem 7: 08/12/23 07:07 08/12/23 07:07 Labs: Abnormal Lab Results - Last 24 Hours (Table) 08/11/23 08/11/23 Range/Units 04:18 04:18 WBC 12.13 H (4.50-10.00) X 10*3/uL RBC 3.73 L (4.10-5.20) X 10*6/uL Hgb 8.0 L (12.0-15.0) g/dL Hct 27.9 L (37.2-46.3) % MCV 74.8 L (80.0-97.0) FL MCH 21.4 L (27.0-32.0) pg MCHC 28.7 L (32.0-37.0) g/dL RDW 30.5 H (11.5-14.5) % Plt Count 523 H (140-440) X 10*3/uL Immature Gran # 0.09 H (0.00-0.04) X 10*3/uL Neutrophils # 8.36 H (1.80-7.70) X 10*3/uL Eosinophils # 0.64 H (0.04-0.35) X 10*3/uL Chloride 110 H (96-109) mmol/L BUN 8.1 L (9.0-27.0) mg/dL Creatinine 0.3 L (0.6-1.5) mg/dL BUN/Creatinine Ratio 27.00 H (12.00-20.00) Ratio Calcium 8.1 L (8.7-10.3) mg/dL
--- NOTE | 2023-08-12 14:49 | P.DS ---
Providers Date of admission: 08/05/23 02:12 Expected date of discharge: 08/12/23 Attending physician: Filiberto Mena Consults: 08/05/23 08:57 Consult Physician Urgent Consulting Provider: Radha Caballero Consult Reason/Comments: anemia, KARI? Do you want consulting provider notified?: Yes 08/05/23 08:58 Consult Physician Urgent Consulting Provider: Greg Ohara Consult Reason/Comments: KARI, anemia Do you want consulting provider notified?: Yes 08/05/23 09:43 Consult Physician Routine Consulting Provider: Cricket Caballero Consult Reason/Comments: GI bleed, currently on Eliquis and Plavix, advised regarding anticoagulatio Do you want consulting provider notified?: Yes Primary care physician: Skylar Shaffer DO Hospital Course: Discharge diagnosis Acute blood loss anemia. Possible GI bleed. Status post EGD and colonoscopy. EGD showed LA grade a reflux esophagitis. No active bleeding noted. Small bowel capsule endoscopy to be scheduled as outpatient. Microcytic Iron deficiency anemia Hypertension Hyperlipidemia Coronary artery disease History of PE according to the chart Dementia Monitor vital signs Monitor CBC, hemoglobin is 6.6, will transfuse 1 unit of packed red blood cell Monitor CMP Continue telemetry monitoring Continue Venofer Continue IV Protonix Hold aspirin, Plavix and Eliquis for now Hospital course patient IS A 68-year-old lady with past medical history significant for coronary artery disease, PE, dementia who presented to the ER for abnormal labs. Patient is currently residing in a [facility] facility and was found to have low hemoglobin levels. Patient denies any chest pain or shortness of breath. There is complain of lethargy and weakness. There was no complaint nausea, vomiting abdominal pain. There was no complaint of blood in the stools. Denies any hematemesis. Patient has been taking aspirin, Plavix and Eliquis in outpatient settings. Because of these abnormal labs, patient sent to the ER Initial lab work done in the ER showed WBC 13, hemoglobin 5.9, platelet count 596, sodium 135, potassium 4.8, BUN 12, creatinine 0.33, AST 123, ALT 41, alk phos 131 EKG done in the ER showed heart rate of80 , no ST segment elevation or depression seen, no T-wave inversions seen. Chest x-ray done in the ER elevated right hemidiaphragm, bilateral atelectasis, small right pleural effusion Patient admitted to internal medicine service 08/06. Patient seen and examined. Currently n.p.o., going for EGD and colonoscopy today. Complaining of back pain 08/07. Patient seen and examined. Patient could not complete EGD and colonoscopy yesterday. Patient EGD scheduled for Wednesday morning. Hemoglobin this morning is 6.6, will transfuse 1 unit of packed red blood cell 08/08. Patient seen and examined. Patient went for EGD and colonoscopy this morning. Upper endoscopy revealed circumferential erythema or the GE junction consistent with LA grade A reflux esophagitis but no evidence of peptic ulcer disease or angiectasia. Colonoscopy revealed poor prep in several areas of the colon but no evidence of colorectal neoplasia .Hemoglobin this morning is 8.1. Currently not in any acute distress. 08/09. Patient seen and examined. No episodes of blood in the stools. Denies any abdominal pain. Cardiology evaluated patient, ordered 2D echo 08/10/2023 Patient is currently resting in bed. Patient is awake alert but still confused at baseline. No complaints of chest pain or shortness of breath. No bowel movement for the last few days. Laboratory data showed WBC 10.9 hemoglobin 8.0 and platelets 570. BUN 5.5 and creatinine 0.3. 08/11/2023 Patient is currently resting in the bed. Awake alert and oriented. Able to tolerate oral diet. Patient did have a bowel movement today otherwise. No dark-colored stools noted. Denies any abdominal pain. Hemoglobin is 8.0 today. WBC 12.1 and platelets 523, potassium 3.7 chloride 110 bicarb is 22.8 BUN 8.1 creatinine 0.3 and blood sugar 86. Calcium 8.1. Antiplatelets and Eliquis is on hold currently until follow-up with oncology in the clinic. Discussed with oncology team. 08/12/2023 Patient is currently resting in the bed. Awake alert and oriented 2-3. Mentation is at baseline. Tolerating oral diet. No complaints of abdominal pain. No nausea vomiting or diarrhea. Patient did have a bowel movement ye sterday without any dark stools. Hemoglobin is fairly stable at 7.1 today Patient has been taking aspirin and Plavix and eliquis. Patient is a poor historian. Seen by cardiology and frequent to hold aspirin Plavix at this time. elquis also on hold low hemoglobin level. And suspected GI bleed Upper endoscopy revealed circumferential erythema or the GE junction consistent with LA grade A reflux esophagitis but no evidence of peptic ulcer disease or angiectasia. Colonoscopy revealed poor prep in several areas of the colon but no evidence of colorectal neoplasia Patient was seen by GI. Outpatient GI follow-up to be scheduled for a small bowel capsule endoscopy to evaluate for small bowel source of occult blood loss. Patient was also seen by hematology. All anticoagulation is on hold until follow-up with hematology in the clinic. Currently patient is hemodynamically stable. She is being discharged to [facility]. PHYSICAL EXAMINATION: GENERAL: The patient is alert to self, not in any acute distress. Well developed, well nourished. HEENT: Pupils are round and equally reacting to light. EOMI. No scleral icterus. No conjunctival pallor. Normocephalic, atraumatic. No pharyngeal erythema. No thyromegaly. CARDIOVASCULAR: S1 and S2 present. No murmurs, rubs, or gallops. PULMONARY: Chest is clear to auscultation, no wheezing or crackles. ABDOMEN: Soft, nontender, nondistended, normoactive bowel sounds. No palpable organomegaly. MUSCULOSKELETAL: No joint swelling or deformity. EXTREMITIES: No cyanosis, clubbing, or pedal edema. Bilateral lower extremity wounds are wrapped. NEUROLOGICAL: Gross neurological examination did not reveal any focal deficits. SKIN: No rashes. Vital Signs 08/12/23 08:15 Pulse Rate [ 67 Pulse Oximetery ] Respiratory 17 Rate Vital Signs - 24 hr 08/11/23 08/12/23 08/12/23 18:56 01:13 06:45 Temperature 97.6 F 98.4 F 98.1 F Pulse Rate [ 74 69 67 Pulse Oximetery ] Respiratory 20 17 Rate Blood Pressure 110/68 105/64 104/65 [Right Arm] O2 Sat by Pulse 98 97 93 L Oximetry 08/12/23 08:15 Temperature Pulse Rate [ 67 Pulse Oximetery ] Respiratory 17 Rate Blood Pressure [Right Arm] O2 Sat by Pulse Oximetry Total time taken greater than 35 minutes including 18 minutes for counseling and coordination of care. Patient Condition at Discharge: Stable Plan - Discharge Summary Discharge Rx Participant: No New Discharge Prescriptions: New Ferrous Sulfate [Iron (65 MG Elemental)] 325 mg PO BID-W/MEALS #60 tab Pantoprazole [Protonix] 40 mg PO DAILY #30 tab Continue Mupirocin 2% Oint [Bactroban 2% Oint] 1 applic TOPICAL TID PRN PRN Reason: SKIN Menthol [Biofreeze] 1 applic TOPICAL QID@07,13,19,22 Lactulose 20 gm PO DAILY PRN PRN Reason: Constipation Pregabalin [Lyrica] 150 mg PO TID@0700,1300,1900 Multivitamins, Thera [Multivitamin (formulary)] 1 tab PO DAILY@0600 Lidocaine/Menthol [Icy Hot 4%-1% Patch] 1 patch TOPICAL DAILY@0700 FLUoxetine HCL [PROzac] 20 mg PO DAILY@0600 Alendronate Sodium [Fosamax] 70 mg PO CLEMENT@0600 oxyCODONE HCL [oxyCODONE HCL (IR)] 5 mg PO Q6H PRN PRN Reason: Pain Mag Hydrox/Aluminum Hyd/Simeth [Mylanta Maximum Strength Liq] 10 ml PO Q4H PRN PRN Reason: Gi Upset Magnesium Hydroxide [Milk of Magnesia] 2,400 mg PO Q3D PRN PRN Reason: Constipation Fluticasone Propion/Salmeterol [Advair 500-50 Diskus] 1 puff INHALATION RT- BID@0700,1900 Sennosides [Senokot] 17.2 mg PO HS@2000 Montelukast [Singulair] 10 mg PO HS@2000 Metoprolol Succinate (ER) [Toprol XL] 25 mg PO DAILY@0700 Melatonin 3 mg PO HS Famotidine [Pepcid] 20 mg PO DAILY@0600 Calcium Carbonate/Vitamin D3 [Calcium 600-Vit D3 5 Mcg (200 Iu)] 1 tab PO DAILY@0600 Atorvastatin [Lipitor] 40 mg PO HS@2000 Acetaminophen [Tylenol Extra Strength] 500 mg PO Q6H PRN PRN Reason: Pain Discontinued Apixaban [Eliquis] 5 mg PO BID Ergocalciferol (Vitamin D2) [Drisdol (50,000 Iu)] 1,250 mcg PO WE@0600 Docusate Sodium [Dok] 200 mg PO DAILY@0600 Clopidogrel [Plavix] 75 mg PO HS@2000 Ascorbic Acid [Vitamin C] 500 mg PO DAILY@0700 Furosemide [Lasix] 20 mg PO DAILY@0700 Aspirin 81 mg PO DAILY@0600 Discharge Medication List Acetaminophen [Tylenol Extra Strength] 500 mg PO Q6H PRN 08/05/23 [History] Alendronate Sodium [Fosamax] 70 mg PO CLEMENT@59908/05/23 [History] Atorvastatin [Lipitor] 40 mg PO HS@199908/05/23 [History] Calcium Carbonate/Vitamin D3 [Calcium 600-Vit D3 5 Mcg (200 Iu)] 1 tab PO DAILY@0608/05/23 [History] FLUoxetine HCL [PROzac] 20 mg PO DAILY@59908/05/23 [History] Famotidine [Pepcid] 20 mg PO DAILY@59908/05/23 [History] Fluticasone Propion/Salmeterol [Advair 500-50 Diskus] 1 puff INHALATION RT- BID@0700,1900 08/05/23 [History] Lactulose 20 gm PO DAILY PRN 08/05/23 [History] Lidocaine/Menthol [Icy Hot 4%-1% Patch] 1 patch TOPICAL DAILY@69908/05/23 [History] Mag Hydrox/Aluminum Hyd/Simeth [Mylanta Maximum Strength Liq] 10 ml PO Q4H PRN 08/05/23 [History] Magnesium Hydroxide [Milk of Magnesia] 2,400 mg PO Q3D PRN 08/05/23 [History] Melatonin 3 mg PO HS 08/05/23 [History] Menthol [Biofreeze] 1 applic TOPICAL QID@07,13,19,22 08/05/23 [History] Metoprolol Succinate (ER) [Toprol XL] 25 mg PO DAILY@69908/05/23 [History] Montelukast [Singulair] 10 mg PO HS@199908/05/23 [History] Multivitamins, Thera [Multivitamin (formulary)] 1 tab PO DAILY@0608/05/23 [History] Mupirocin 2% Oint [Bactroban 2% Oint] 1 applic TOPICAL TID PRN 08/05/23 [History] Pregabalin [Lyrica] 150 mg PO TID@0700,1300,1900 08/05/23 [History] Sennosides [Senokot] 17.2 mg PO HS@199908/05/23 [History] oxyCODONE HCL [oxyCODONE HCL (IR)] 5 mg PO Q6H PRN 08/05/23 [History] Ferrous Sulfate [Iron (65 MG Elemental)] 325 mg PO BID-W/MEALS #60 tab 08/12/23 [Rx] Pantoprazole [Protonix] 40 mg PO DAILY #30 tab 08/12/23 [Rx] Follow up Appointment(s)/Referral(s): Greg Ohara [STAFF PHYSICIAN] - 2 Weeks Radha Caballero MD [STAFF PHYSICIAN] - 1 Week [facility], [NON-STAFF] - As Needed None,Stated [REFERRING] - 1-2 days Discharge Disposition: TRANSFER TO SNF/ECF
[2023-08-12 21:36] VITALS: BP 113/75; PULSE 75; RESP 19; TEMP 98.2
== END 2023-08-12 21:55 | DRG 811 ==
LOC: EC 23:48 → 3SCARD 08-05 02:12 → 4SSUR 08-06 09:34
PROVIDERS: ADMIT Hospitalist; ATTEND Hospitalist
PROC: 30233N1 Transfusion of Nonautologous Red Blood Cells into Peripheral Vein, Percutaneous Approach (ICD-10-PCS; 2023-08-05)
PROC: 0DB88ZX Excision of Small Intestine, Via Natural or Artificial Opening Endoscopic, Diagnostic (ICD-10-PCS; principal; 2023-08-08 07:00)
PROC: 0DJD8ZZ Inspection of Lower Intestinal Tract, Via Natural or Artificial Opening Endoscopic (ICD-10-PCS; 2023-08-08 07:00)
DX: D62 Acute posthemorrhagic anemia (principal); K21.01 Gastro-esophageal reflux disease with esophagitis, with bleeding; J90 Pleural effusion, not elsewhere classified; F03.93 Unspecified dementia, unspecified severity, with mood disturbance; F03.94 Unspecified dementia, unspecified severity, with anxiety; I70.202 Unspecified atherosclerosis of native arteries of extremities, left leg; I48.91 Unspecified atrial fibrillation; E86.0 Dehydration; I10 Essential (primary) hypertension; F32.A Depression, unspecified; F10.11 Alcohol abuse, in remission; D75.839 Thrombocytosis, unspecified; M89.9 Disorder of bone, unspecified; I25.10 Atherosclerotic heart disease of native coronary artery without angina pectoris; E78.5 Hyperlipidemia, unspecified; G89.4 Chronic pain syndrome; M79.7 Fibromyalgia; F41.9 Anxiety disorder, unspecified; J44.89 Other specified chronic obstructive pulmonary disease; Z87.891 Personal history of nicotine dependence; Z79.01 Long term (current) use of anticoagulants; Z79.82 Long term (current) use of aspirin; Z79.83 Long term (current) use of bisphosphonates; Z79.02 Long term (current) use of antithrombotics/antiplatelets; Z86.711 Personal history of pulmonary embolism; Z74.01 Bed confinement status; Z91.81 History of falling; Z79.51 Long term (current) use of inhaled steroids; Z79.899 Other long term (current) drug therapy; Z88.8 Allergy status to other drugs, medicaments and biological substances; Z88.5 Allergy status to narcotic agent
CPT/HCPCS: 36415; 36430; 43239; 45378; 51702; 51798; 71045; 80048; 80053; 82150; 82272; 82607; 82728; 82746; 83540; 83550; 83605; 83690; 83921; 85025; 85027; 85045; 85610; 85730; 86850; 86900; 86901; 86920; 88305; 91110; 93005; 93308; 94640; 94760; 96365; 96366; 96375; 96376; 99285